=== PATIENT | female | born 1935 | race Caucasian/White ===

== ENCOUNTER → 2017-09-08 07:27 | Day surgery (SDC) | payer MEDICARE ==
[~2017-09-08 07:27] MED LIST: Acetaminophen TAB* 325 MG PO PRN; Buffered Lidocaine 0.9% SYRIN* 5 ML/SYR SYRINGE INTRADERM ONE; Cyclopentolate 1% OPTH.SOL* 2 ML BTL ONE; Ketorolac 0.5% OPHTH (NF) 0.5 % 5 ML BTL ONE; Lidocaine 1% MPF* 2 ML VIAL ONE; Lidocaine 2% EPI 1:200000 MPF* 20 ML VIAL ONE; Midazolam* 1 MG/ML 2 ML VIAL (2 MG) ONE; Neomycin/Polymy/Dex OPTH.SUSP* MAXITROL 0.1% 5 ML ONE; Phenylephrine 2.5% OPTH.SOL* 2 ML BTL ONE; Povidone Iodine 5% OPTH* 30 ML BTL ONE; Proparacaine 0.5% OPHTH.SOL* 15 ML BTL ONE; acetaZOLAMIDE TAB* 250 MG ONE
[2017-09-08 10:05] VITALS: BP 144/71
--- NOTE | 2017-09-08 16:11 | OP ---
DATE OF OPERATION: 09/08/2017 - [facility] DATE OF : 1935. SURGEON: Rakan Rao M.D. PREOPERATIVE DIAGNOSIS: Cataract right eye. POSTOPERATIVE DIAGNOSIS: Cataract right eye. OPERATIVE PROCEDURE: Extracapsular cataract extraction with intraocular lens implant right eye. DESCRIPTION OF PROCEDURE: The patient was brought to the operating room after being given 1/2% Alcaine with epinephrine drops in the preoperative area. The eye was prepped and draped in the usual sterile fashion. Sterile drape and eyelid speculum were placed. Again, topical 1/2% Alcaine with epinephrine was given. A paracentesis incision was made at the 9 o'clock position with the No.75 blade. Clear cornea incision 2.2 x 2.2-mm was created at the 12 o'clock position starting at the anterior limbus using the 2.2-mm keratome. The anterior chamber was irrigated with 0.4 mL of 1% non-preservative intracameral lidocaine and filled with DisCoVisc. A capsulorrhexis was completed using the cystotome and the Utrata forceps. Hydrodissection was performed with balanced salt solution. The lens nucleus was removed with the Phacoemulsification handpiece without incident. Cortex was removed with the irrigation-aspiration handpiece. The capsular bag was re-inflated using DisCoVisc and an [id number] 18.5 implant was inserted with the shooter, oriented to the 95 degree axis. The irrigation-aspiration handpiece was used to remove all residual DisCoVisc. The eye was refilled with balanced salt solution and the wound checked and found to be watertight. Topical Maxitrol drops were given. [id number]/[facility] #: [id number] [facility]
== END | disposition home or self-care (01) ==
LOC: OREAST 07:27
PROVIDERS: ATTEND Specialist
DX: H25.811 Combined forms of age-related cataract, right eye (principal); H11.013 Amyloid pterygium of eye, bilateral; I47.1 Supraventricular tachycardia; I10 Essential (primary) hypertension; K44.9 Diaphragmatic hernia without obstruction or gangrene; Z85.828 Personal history of other malignant neoplasm of skin
CPT/HCPCS: A9270-GY; J2250; V2787

== ENCOUNTER 2017-09-15 10:27 | Day surgery (SDC) | payer MEDICARE ==
[~2017-09-15 10:27] MED LIST changes: -Midazolam* 1 MG/ML 2 ML VIAL (2 MG) ONE
[2017-09-15] MEDS ORDERED: Midazolam* 1 MG/ML 2 ML VIAL (2 MG) ONE ×2 (11:56→12:16)
[2017-09-15 12:57] VITALS: BP 136/83
--- NOTE | 2017-09-15 14:25 | OP ---
DATE OF OPERATION: 09/15/2017. DATE OF : 1935. SURGEON: Rakan Rao M.D. PREOPERATIVE DIAGNOSIS: Cataract left eye. POSTOPERATIVE DIAGNOSIS: Cataract left eye. OPERATIVE PROCEDURE: Extracapsular cataract extraction with intraocular lens implant left eye. PROCEDURE: The patient was brought to the operating room after being given 1/2% Alcaine with epineph rine drops in the preoperative area. The eye was prepped and draped in the usual sterile fashion. S terile drape and eyelid speculum were placed. Again, topical 1/2% Alcaine with epinephrine was given . A paracentesis incision was made at the 3 o'clock position with the No.75 blade. Clear cornea inc ision 2.2 x 2.2-mm was created at the 6 o'clock position starting at the anterior limbus using the 2. 2-mm keratome. The anterior chamber was irrigated with 0.4 mL of 1% non-preservative intracameral li docaine and filled with DisCoVisc. A capsulorrhexis was completed using the cystotome and the Utrata forceps. Hydrodissection was performed with balanced salt solution. The lens nucleus was removed wi th the Phacoemulsification handpiece without incident. Cortex was removed with the irrigation-aspira tion handpiece. The capsular bag was re-inflated using DisCoVisc and an [id number] 17 implant was insert ed with the shooter, oriented to the 108 degree axis. Horizontal reference rashid were made with the patient in a seated position in the preoperative area. The irrigation-aspiration handpiece was used to remove all residual DisCoVisc. The eye was refilled with balanced salt solution and the wound debora cked and found to be watertight. Topical Maxitrol drops were given. [id number]/[facility] #: [id number]
== END 2017-09-15 12:40 | disposition home or self-care (01) ==
LOC: OREAST 10:27
PROVIDERS: ATTEND Specialist
DX: H25.812 Combined forms of age-related cataract, left eye (principal); H11.013 Amyloid pterygium of eye, bilateral; I10 Essential (primary) hypertension; I47.1 Supraventricular tachycardia; I48.91 Unspecified atrial fibrillation
CPT/HCPCS: A9270-GY; J2250; V2787

== ENCOUNTER 2018-03-06 15:29 | Observation (INO) | payer MEDICARE ==
[2018-03-06] MEDS ORDERED: NS 0.9% 1000 ML* 1,000 ML IV ONE (15:41)
--- NOTE | 2018-03-06 15:54 | RAD ---
HISTORY: Neurological changes/code nunez COMPARISONS: None relevant TECHNIQUE: Multiple contiguous axial CT scans were obtained of the head without intravenous contrast. FINDINGS: HEMORRHAGE/INFARCT: There is no hemorrhage or acute infarct. MASSES/SHIFT: There is no mass or shift. EXTRA-AXIAL SPACES: There are no extra-axial fluid collections. SULCI AND VENTRICLES: The sulci and ventricles are normal in size and position for the patient's stated age. CEREBRUM: There is hypoattenuation of the periventricular and subcortical white matter. BRAINSTEM: There are no focal parenchymal abnormalities. CEREBELLUM: There are no focal parenchymal abnormalities. VESSELS: The vessels are grossly normal. PARANASAL SINUSES: The paranasal sinuses are clear. ORBITS: The orbits are unremarkable. BONES AND SOFT TISSUE: No bone or soft tissue abnormalities are noted. OTHER: None IMPRESSION: NO ACUTE INTRACRANIAL PATHOLOGY. PRELIMINARY FINDINGS WERE DISCUSSED WITH DR. RIVERA IN THE EMERGENCY DEPARTMENT AT APPROXIMATELY 3:47 PM ON MARCH 06 2018.
--- NOTE | 2018-03-06 16:00 | ED ---
Neurological HPI - HPI Summary HPI Summary: This is scribe Kunal Bah documenting for attending Dr. Daniel BRENNER. Pt is an 82 y/o F who presents to ED c/o memory and eyesight problems earlier today. 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 Pt is unsure if the vision problem was in one eye or both eyes, and she does not describe a "curtain" or darkening of any portion of her vision. 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 Pt states that those symptoms have now resolved since she is able to now remember the names she had not been able to recall earlier and was able to sew. 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 Not on any blood thinners. Denies PMHx of strokes. I, Dr. Sanchez, personally performed the services described in this documentation as scribed in my presence and it is both accurate and complete. Home Medications Medication Instructions Recorded Confirmed Type Aspirin [Simone Aspirin EC Low Dose 81 mg PO DAILY 03/06/18 03/06/18 History 81 MG] Losartan Potassium 25 mg PO DAILY 03/06/18 03/06/18 History Metoprolol Succinate 50 mg PO DAILY 03/06/18 03/06/18 History Multivit-Min/Iron/Folic/Lutein 1 each PO DAILY 03/06/18 03/06/18 History [Centrum Silver Women Tablet] - History of Current Complaint Chief Complaint: EDNeurologicalDeficit Stated Complaint: POSSIBLE STROKE LIKE SYMPTOMS Time Seen by Provider: 03/06/18 15:34 Hx Obtained From: Patient, Family/Survey Technician - and children present Onset/Duration: Sudden Onset, Started hours ago, Resolved Timing: Constant Onset Severity: Moderate Current Severity: None Neurological Deficit Location: Facial - blurred vision, memory problems Pain Intensity: 0 Pain Scale Used: 0-10 Numeric Character: Visual Changes, Other: - memory problems Aggravating: Nothing Alleviating: Nothing Associated Signs and Symptoms: Positive: Visual Changes, Memory Loss. Negative : Headache, Weakness, Impaired Speech, Numbness TPA Considered: No - deficit resolved - Allergy/Home Medications Allergies/Adverse Reactions: Allergies Allergy/AdvReac Type Severity Reaction Status Date / Time Penicillins Allergy Mild Rash Verified 09/15/17 10:48 Home Medications: Home Medications Aspirin [Simone Aspirin EC Low Dose 81 MG] 81 mg PO DAILY 03/06/18 [History Confirmed 03/06/18] Losartan Potassium 25 mg PO DAILY 03/06/18 [History Confirmed 03/06/18] Metoprolol Succinate 50 mg PO DAILY 03/06/18 [History Confirmed 03/06/18] Multivit-Min/Iron/Folic/Lutein [Centrum Silver Women Tablet] 1 each PO DAILY [History Confirmed 03/06/18] PMH/Surg Hx/FS Hx/Imm Hx Previously Healthy: No Endocrine/Hematology History: Denies: Hx Diabetes Cardiovascular History: Reports: Hx Atrial Fibrillation, Hx Hypercholesterolemia Denies: Hx Coronary Artery Disease, Hx Hypertension, Hx Myocardial Infarction , Hx Pacemaker/ICD, Hx Valvular Heart Disease Respiratory History: Denies: Hx Asthma, Hx Chronic Obstructive Pulmonary Disease (COPD) GI History: Reports: Hx Hiatal Hernia History: Denies: Hx Renal Disease Musculoskeletal History: Reports: Hx Arthritis, Hx Osteoporosis Denies: Hx Rheumatoid Arthritis Sensory History: Reports: Hx Cataracts - both, Hx Contacts or Glasses - glasses , Hx Hearing Aid Opthamlomology History: Reports: Hx Cataracts - both, Hx Contacts or Glasses - glasses Psychiatric History: Denies: Hx Panic Disorder - Surgical History Surgery Procedure, Year, and Place: VEIN LIGATION - STRIPPING - VARICOSE VEINS. D & C. PIECE OF SKIN REMOVED FROM CHEEK, PRE CANCEROUS Hx Anesthesia Reactions: No Infectious Disease History: No Infectious Disease History: Denies: Traveled Outside the [place] in Last 30 Days - Family History Known Family History: Positive: Other - CVA - Social History Lives: With Family Alcohol Use: Daily Alcohol Amount: 2 GLASSES OF WINE DAILY Substance Use Type: Reports: None Smoking Status (MU): Never Smoked Tobacco Review of Systems Constitutional: Negative Positive: Blurred Vision Cardiovascular: Negative Respiratory: Negative Gastrointestinal: Negative Skin: Negative Neurological: Other - Memory loss, NEGATIVE: facial drooping Negative: Headache, Weakness, Slurred Speech Psychological: Normal All Other Systems Reviewed And Are Negative: Yes Physical Exam - Summary Physical Exam Summary: Appearance: Well-appearing, no pain distress, well-nourished, hypertensive Skin: Warm, color reflects adequate perfusion, dry Head: Normal Head/Face inspection, atraumatic Eyes: Conjunctiva clear, PERRL, EOMI, fundi discs sharp and flat, visual mota normal by confrontation ENT: Normal inspection Neck: Supple, no nodes, no JVD Respiratory: Lungs clear, normal breath sounds, no respiratory distress Cardio: RRR, No murmur, pulses normal, brisk capillary refill Abdomen: Soft, nontender Bowel sounds: Present Musculoskeletal: Strength Intact/ROM intact, no calf tenderness, no edema. Psychological: Normal Neuro Exam: A&O x3, CN II-XII intact, motor function 5/5, sensation intact, cerebellar normal Triage Information Reviewed: Yes Vital Signs On Initial Exam: Initial Vitals Temp Pulse Resp BP Pulse Ox 97.4 F 73 16 160/99 96 03/06/18 15:36 03/06/18 15:36 03/06/18 15:36 03/06/18 15:36 03/06/18 15:36 Vital Signs Reviewed: Yes Diagnostics - Vital Signs Vital Signs Temp Pulse Resp BP Pulse Ox 03/06/18 15:36 97.4 F 73 16 160/99 96 - Laboratory Result Diagrams: 03/06/18 15:58 03/07/18 06:07 Lab Statement: Any lab studies that have been ordered have been reviewed, and results considered in the medical decision making process. - Radiology CXR Radiology Interpretation Completed By: Radiologist - Impression: No active cardiopulmonary disease. ED Physician reviewed this report. - CT CTA Head/Neck CT Interpretation Completed By: Radiologist - IMPRESSION: 1. FINDINGS CONSISTENT WITH FIBROMUSCULAR DYSPLASIA. 2. NO INTERNAL CAROTID ARTERY STENOSIS BY NASCET CRITERIA. 3. NO ANEURYSM, VASCULAR MALFORMATION, OCCLUSION, OR STENOSIS OF THE VISUALIZED INTRACRANIAL CIRCULATION. ED Physician reviewed this report. - EKG 15:51 Cardiac Rate: NL EKG Rhythm: Sinus Rhythm ST Segment: Non-Specific Ectopy: None EKG Interpretation: Nl AVIVCT, nl QTc, nl axis, no acute changes EKG Comparison: No Significant Change - c/w 12/01/14 no signif change, except no PVC's now NIH Scale - NIH Scale Level of Consciousness: Alert/Keenly Responsive Ask Patient the Month and His/Her Age: Both Correct Ask Pt to Open/Close Eyes and Hospice Care Sales Consultant/Release Non-Paretic Hand: Both Correctly Best Gaze (Only Horizontal Eye Movement): Normal Visual Field Testing: No Visual Loss Facial Paresis-Pt to Smile & Close Eyes or Grimace Symmetry: Normal/Symmetrical Motor Function - Right Arm: No Drift-Holds 10 Seconds Motor Function - Left Arm: No Drift-Holds 10 Seconds Motor Function - Right Leg: No Drift-Holds 10 Seconds Motor Function - Left Leg: No Drift-Holds 10 Seconds Limb Ataxia-Must be out of Proportion to Weakness Present: Absent Sensory (Use Pinprick to Test Arms/Legs/Trunk/Face): Normal Best Language (Describe Picture, Name Items): No Aphasia Dysarthria (Read Several Words): Normal Extinction and Inattention: No Abnormality Total Score: 0 Course/Dx - Course Course Of Treatment: Pt is an 82 y/o F who presents to ED c/o memory and eyesight problems earlier today. Wilbur Kinney called at 15:48. Telestroke initiated at 15:[address] Fernando Brito. Telestroke completed at 16:21. NIH 0, no TPA recommended. Vitals at 16:06 was BP 182/91, O2 98, and pulse of 68. CXR showed no active cardiopulmonary disease. CTA Head/Neck showed findings consistent with fibromuscular dysplasia, no internal carotid artery stenosis, and no aneurysm, vascular malformation, or occlusion. Pt admitted to medicine with neuro consult for further evaluation and treatment of TIA. - Differential Dx Differential Diagnoses Neuro: Positive: Cerebrovascular Accident, Metabolic Abnormality, Transient Ischemic Attack - Diagnoses Provider Diagnoses: TIA (transient ischemic attack) During the Visit The Following Alert/Code Occurred: Wilbur Grover Discharge - Sign-Out/Discharge Documenting (check all that apply): Patient Departure - admit - Discharge Plan Condition: Stable Disposition: ADMITTED TO [facility] - Billing Disposition and Condition Condition: STABLE Disposition: Admitted to [facility] - Attestation Statements Document Initiated by Scribe: Yes Documenting Scribe: Martin Bah Provider For Whom Scott is Documenting (Include Credential): Adelia Sanchez MD Scribe Attestation: Martin Carias scribed for Adelia Sanchez MD on 03/08/18 at 2326. Scribe Documentation Reviewed: Yes Provider Attestation: The documentation as recorded by the scribe, Prashati Olvin accurately reflects the service I personally performed and the decisions made by me, Adelia Sanchez MD
[2018-03-06 16:10] LABS: ABS Basophils 0 10^3/ul (0-0.2); ABS Eosinophils 0.1 10^3/ul (0-0.6); ABS Lymphocytes 1.6 10^3/ul (1.0-4.8); ABS Monocytes 0.5 10^3/ul (0-0.8); ABS Neutrophils 3.1 10^3/ul (1.5-7.7); ABS Nucleated RBC 0 10^3/ul; Eosinophil % 1.9 % (0-6); Hematocrit 39 % (35-47); Hemoglobin 13.4 g/dl (12.0-16.0); Lymphocyte % 30.3 % (25-47); Mean Corpuscular HGB Conc 34 g/dl (31-36); Mean Corpuscular Hemoglobin 31 pg (27-31); Mean Corpuscular Volume 91 fL (80-97); Mean Platelet Volume 8.7 um3 (7.4-10.4); Nucleated Red Blood Cells % 0; Platelet Count 219 10^3/ul (150-450); Red Blood Count 4.25 10^6/ul (4.00-5.40); Red Cell Distribution Width 14 % (10.5-15); White Blood Count 5.2 10^3/ul (3.5-10.8)
[2018-03-06 16:18] LABS: INR 0.91 (0.77-1.02)
[2018-03-06 16:27] LABS: EGFR Non-African American 70.4 (>60)
[2018-03-06] MEDS ORDERED: Iohexol 350* (CONTRAST) 500 ML MDV IV ONE (16:30)
--- NOTE | 2018-03-06 16:44 | RAD ---
HISTORY: Neurological Changes/Code Kinney COMPARISONS: December 01, 2014 VIEWS: 1: frontal portable view of the chest at 4:30 PM FINDINGS: LINES AND TUBES: None. CARDIOMEDIASTINAL SILHOUETTE: The cardiomediastinal silhouette is stable. PLEURA: The costophrenic angles are sharp. No pleural abnormalities are noted. LUNG PARENCHYMA: The lungs are clear. ABDOMEN: The upper abdomen is clear. There is no subphrenic gas. BONES AND SOFT TISSUES: No bone or soft tissue abnormalities are noted. IMPRESSION: NO ACTIVE CARDIOPULMONARY DISEASE.
--- NOTE | 2018-03-06 17:04 | RAD ---
HISTORY: vision loss and memory, naming probs, resolved COMPARISONS: Head CT dated March 06, 2018 TECHNIQUE: Multiple contiguous axial CT scans were obtained of the head and neck after the administration of nonionic intravenous contrast timed to the systemic arterial phase of contrast enhancement. Coronal and sagittal multiplanar reformations are submitted for review. Multiple 3-D maximum intensity projection reconstructions are also submitted for review. FINDINGS: CTA NECK: AORTIC ARCH: The aortic arch is not completely visualized within the [id number] the current examination. There is no proximal stenosis of the cephalic great vessels. RIGHT VERTEBRAL ARTERY: The right vertebral artery is patent along its course, without stenosis. LEFT VERTEBRAL ARTERY: The left vertebral artery is patent along its course, without stenosis. DOMINANCE: The vertebral arteries are codominant. RIGHT COMMON CAROTID ARTERY: The right common carotid artery is patent. The right carotid bifurcation occurs at C3-C4 RIGHT INTERNAL CAROTID ARTERY: The right internal carotid artery is tortuous. There is alternating dilatation and narrowing consistent with fibromuscular dysplasia. There is no right internal carotid artery stenosis by NASCET criteria. RIGHT EXTERNAL CAROTID ARTERY: The right external carotid artery is unremarkable. LEFT COMMON CAROTID ARTERY: The left common carotid artery is patent. The left carotid bifurcation occurs at C3-C4 LEFT INTERNAL CAROTID ARTERY: The left internal carotid artery is tortuous. There is alternating dilatation and narrowing consistent with fibromuscular dysplasia. There is no left internal carotid artery stenosis by NASCET criteria. LEFT EXTERNAL CAROTID ARTERY: The left external carotid artery is unremarkable. VENOUS CIRCULATION: The venous system is unremarkable. SALIVARY GLANDS: The parotid glands, submandibular glands, sublingual glands are normal. NASAL CAVITY/NASOPHARYNX: The nasal cavity and nasopharynx are normal. ORAL CAVITY/OROPHARYNX: The oral cavity is obscured by streak artifact from dental amalgam. The visualized oral cavity and oropharynx are unremarkable. LARYNGEAL APPARATUS/HYPOPHARYNX: The laryngeal apparatus and hypopharynx are normal. UPPER AIRWAY/UPPER ESOPHAGUS: The visualized upper airway and esophagus are normal. LUNG APICES: The lung apices are clear. THYROID GLAND: Small thyroid nodules are noted. LYMPH NODES: There is no lymphadenopathy by size criteria. BONES AND SOFT TISSUES: Degenerative changes are noted. CTA HEAD: INTRACRANIAL CIRCULATION: There is no aneurysm, vascular malformation, occlusion, or stenosis of the visualized intracranial circulation. The anterior communicating artery complex is clear. Bilateral posterior communicating arteries are identified. VENOUS CIRCULATION: The venous system is unremarkable. PERFUSION: There is no obvious parenchymal perfusion deficit. HEMORRHAGE/INFARCT: There is no hemorrhage or acute infarct. MASSES/SHIFT: There is no mass or shift. EXTRA-AXIAL SPACES: There are no extra-axial fluid collections. SULCI AND VENTRICLES: The sulci and ventricles are normal in size and position for the patient's stated age. CEREBRUM: There is hypoattenuation of the periventricular and subcortical white matter. BRAINSTEM: There are no focal parenchymal abnormalities. CEREBELLUM: There are no focal parenchymal abnormalities. PARANASAL SINUSES: The paranasal sinuses are clear. ORBITS: The orbits are unremarkable. BONES AND SOFT TISSUE: No bone or soft tissue abnormalities are noted. OTHER: There is no abnormal enhancement. IMPRESSION: 1. FINDINGS CONSISTENT WITH FIBROMUSCULAR DYSPLASIA. 2. NO INTERNAL CAROTID ARTERY STENOSIS BY NASCET CRITERIA. 3. NO ANEURYSM, VASCULAR MALFORMATION, OCCLUSION, OR STENOSIS OF THE VISUALIZED INTRACRANIAL CIRCULATION. CPT II Codes: 3100F
[2018-03-06] MEDS ORDERED: Acetaminophen TAB* 325 MG PO PRN (17:32)
[2018-03-06] MEDS ORDERED: Ondansetron INJ* 2 MG/ML VIAL IV PRN (17:32)
[2018-03-06] MEDS ORDERED: hydrALAZINE IV* 20 MG/ML VIAL IV SLOW PU PRN (17:44)
--- NOTE | 2018-03-06 22:33 | HP ---
CC: Dr. Natalya Ordoñez; Dr. Salinas * HISTORY AND PHYSICAL: DATE OF ADMISSION: 03/06/18 PRIMARY CARE PROVIDER: Dr. Natalya Ordoñez. ATTENDING PHYSICIAN WHILE IN THE HOSPITAL: Dr. Jayjay Castro * (report dictated by Deyvi Liang NP). CHIEF COMPLAINT: 1. Difficulty with vision. 2. Confusion. HISTORY OF PRESENT ILLNESS: Mrs. Howard is an 82-year-old female patient. She has a history of cataracts, AFib, Lyme disease, and a history of hypertension. She is coming in today. 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 She was opening the store this morning and she was going to sit down to do some sewing and she was having a difficult time threading the needle. She said she has been sewing for several years and she took 30 plus tries to get the needle, which she says is not normal for her and she says that she was having a hard time seeing the end of the needle where the thread went through. She was finally able to get it and she continued about doing her sewing and then she noticed what she was sewing, she was having trouble remembering what stitches that she was doing and then, she had trouble remembering her kids' names, which was very concerning to her. She closed the store at 2:00. She denied any facial drooping, weakness to one side. No blurry or double vision, although she does state that about a month ago, she had blurry vision in her right eye when she was reading, the letters on the right side of the page were blurry. She did state she had blurry vision today trying to thread the needle, but she was not sure if it was in one eye or the other. She said her vision got better , but the confusion was concerning, but while she was driving home, things were coming back to her, she was remembering her stitches, she was knowing her children's names. She got home and she told her children what happened and her , the children's father, and they urged her to go to the ER. There was no reports of slurred speech, no reports of difficulty finding words, no reports of weakness to one side, unsteady gait, or loss of consciousness. She says she has been feeling well until today. There has not been any fevers, chills, vomiting, or diarrhea. She denied having any chest pain or palpitations of late. She says she has been taking her medications. There has been no change in medications, but she came into the ED, a code enrique was called. There was concern for possible stroke versus TIA and we were asked to evaluate for admission. PAST MEDICAL HISTORY: Significant for: 1. Cataracts. 2. AFib. 3. Lyme disease. 4. Hypertension. PAST SURGICAL HISTORY: 1. She has had cataract extraction. 2. She has had varicose vein stripping. HOME MEDICATIONS: Home medications according to the list that she provided us include: 1. Multivitamin 1 tablet daily. 2. Metoprolol succinate 50 mg daily. 3. Aspirin 81 mg daily. 4. Losartan 25 mg daily. ALLERGIES TO MEDICATIONS: Include PENICILLIN. FAMILY HISTORY: Her mother had a history of stroke. Her father had a history of melanoma. SOCIAL HISTORY: She does not smoke. She does drink a glass of wine in the evening time typically. Surrogate decision maker is her of her children. REVIEW OF SYSTEMS: There is no documented fever. She denies having any significant weight change. There was reports of double vision. No ear discharge. No rhinorrhea. No sore throat. No thyroid enlargement. Denies having any chest pain. There is no orthopnea. No nocturnal dyspnea. There is no abdominal pain. No nausea. No vomiting. No dysuria, no frequency. No seizure, no loss of consciousness. No pruritus and no skin ulcerations. Review of 14 systems completed, all others were negative. PHYSICAL EXAMINATION GENERAL: At this time, Mrs. Howard is an 82-year-old female patient; she is sitting in the ED stretcher. She does not appear to be in any acute distress. VITAL SIGNS: Blood pressure 182/99, pulse 66, respirations were 18, O2 sat 98% , temperature 97.4. HEENT: Head atraumatic and normocephalic. Eyes: EOMs were intact. Sclerae were anicteric and not pale. Throat: Oral mucosa appears to be moist. No oropharyngeal erythema. NECK: Supple. LUNGS: Clear to auscultation bilaterally. No wheezes, rales, or rhonchi. HEART: Sounds S1, S2. Regular rate and rhythm. No murmurs, rubs, or gallops. ABDOMEN: Soft, flat, nontender. Bowel sounds were present. EXTREMITIES: Pulses were 2+ throughout. She is able to move all 4 extremities with 5/5 strength. No peripheral edema. NEUROLOGICAL: She is awake, alert, and oriented x3. Tongue midline. Bench Lathe Operator were equal. Cranial nerves II through XII were intact. Gstbni-yw-krwy intact bilaterally. Zmmq-uk-hvhy was intact bilaterally. Speech was clear. She had no gross focal deficits. SKIN: Grossly intact. DIAGNOSTIC STUDIES/LAB DATA: Labs today are revealing a WBC of 5.2, RBC of 4.25, hemoglobin of 13.4, hematocrit of 39, platelet count of 219. The INR was 0.91, the PTT was 34.6. The sodium was 139, potassium was 3.8, chloride of 104 , bicarb 29, BUN 16, creatinine 0.78, glucose 147, lactic 1.4, calcium 9.5. Total bili 0.6. AST 17, ALT 15, alk phos 55. Troponin 0.00. Albumin of 4.2. She did have multiple imaging in the ED starting out CTA head and neck findings consistent with fibromuscular dysplasia, no internal carotid artery stenosis by NASCET criteria. No aneurysm, vascular malformation, occlusion, or stenosis of the visualized intracranial circulation. She did have a chest x-ray obtained today, impression: No active cardiopulmonary disease. There was a brain CT obtained today, which showed no acute intracranial pathology. She did have an EKG obtained today as well, which showed a normal sinus rhythm, rate of 62, she had no ST elevations or T-wave inversions. It was reviewed with previous EKG. Previous EKG did have PACs. Old medical records were reviewed. ASSESSMENT AND PLAN: Mrs. Howard is an 82-year-old female patient coming into the emergency department today with complaints of difficulty with vision and confusion. She presented to the ED and nena nunez was called. She will be admitted under observation status for: 1. Transient ischemic attack. Again, her symptoms are completely resolved at this point. However, I am concerned she has a history of atrial fibrillation. Certainly theoretically that she could have been going in and out atrial fibrillation that may have thrown clots to her brain. My plan at this point, I did touch base with Dr. Salinas. He does not want to start blood thinners at this point until after MRI to make sure there has not been any large areas of infarct. In the time being, we will place the patient on full-dose aspirin, frequent neuro checks. I have ordered an echo with bubble study. We will get an MRI of the brain. CTA head and neck was already done and negative. Neurology has been consulted. She will be placed on telemetry and we will continue to follow her closely. I will check lipid panel and A1c. 2. Atrial fibrillation. Again, she is in a sinus rhythm currently. We will continue to monitor. She will be placed on telemetry. We will need to consider blood thinning in the form of either Eliquis, Xarelto, Pradaxa, or Coumadin. I will let the primary to determine this tomorrow. For tonight, we are holding until the MRI is obtained tomorrow. 3. Hypertension in the setting of possible transient ischemic attack. I will allow for permissive hypertension. I have ordered p.r.n. hydralazine for blood pressures greater than 190 or diastolics greater than 110 and I have held her metoprolol and her Cozaar. 4. DVT prophylaxis. Again, I am not going to start DVT prophylaxis just yet. I will place her on SCDs only because again I want to minimize the risk of any hemorrhagic conversion if there was any areas of infarct on the MRI of brain. 5. Fluids, electrolytes, and nutrition. She can have a heart-healthy diet. 6. Code status. Full code. TIME SPENT: On the admission was 60 minutes, greater than half time spent face- to- face with the patient obtaining my history and physical, other half time was spent going over the plan of care with the patient and implementing the plan of care. I did discuss the plan of care with my attending, Dr. Castro, he is in agreement. DEYVI LIANG, YAMEL [id number]/[facility] #: [id number] FADY
[2018-03-06] MEDS: Aspirin TAB* 325 MG PO SCH (22:53)
[2018-03-07 03:55] LABS: Urine Appearance Clear; Urine Blood Negative (Negative); Urine Color Straw; Urine Ketones Negative (Negative); Urine Protein Negative (Negative); Urine Red Blood Cell Absent (Absent); Urine Specific Gravity 1.018 (1.010-1.030); Urine Urobilinogen Negative (Negative); Urine White Blood Cell Trace(0-5/hpf) (Absent)
[2018-03-07 06:21] LABS: INR 0.91 (0.77-1.02)
[2018-03-07 06:33] LABS: EGFR Non-African American 79.7 (>60)
--- NOTE | 2018-03-07 08:55 | RAD ---
HISTORY: tia COMPARISONS: Head CT dated March 06, 2018 TECHNIQUE: The following sequences were obtained of the head: Sagittal T1-weighted images, axial T2-weighted images, axial FLAIR images, axial susceptibility weighted images, axial T1-weighted images. Additionally, axial diffusion-weighted images were obtained with calculated apparent diffusion coefficients. FINDINGS: HEMORRHAGE/INFARCT: There is no hemorrhage or acute infarct. MASSES/SHIFT: There is no mass or shift. EXTRA-AXIAL SPACES/MENINGES: There are no extra-axial fluid collections. SULCI AND VENTRICLES: The sulci and ventricles are normal in size and position for the patient's stated age. CEREBRUM: There are multiple scattered small foci of elevated T2/FLAIR signal within the periventricular and subcortical white matter. BRAINSTEM: There are no focal parenchymal abnormalities. CEREBELLUM: There are no focal parenchymal abnormalities. The cerebellar tonsils are normal in size and position. SELLA: The sella is normal. PINEAL: The pineal region is clear. CP ANGLE/TEMPORAL BONES: The labyrinthine structures are grossly normal. VESSELS: Normal flow-voids are noted within the visualized vertebral vasculature. DIFFUSION ABNORMALITIES: There are no diffusion abnormalities. PARANASAL SINUSES/MASTOIDS: The paranasal sinuses are clear. ORBITS: The orbits are unremarkable. BONES AND SOFT TISSUE: No bone or soft tissue abnormalities are noted. OTHER: None IMPRESSION: 1. THERE ARE MULTIPLE FOCI OF ELEVATED T2/FLAIR SIGNAL WITHIN THE PERIVENTRICULAR AND SUBCORTICAL WHITE MATTER. WHILE THESE FINDINGS ARE NONSPECIFIC, THEY CAN BE SEEN IN ASSOCIATION WITH MIGRAINE HEADACHE, THE SEQUELA OF PREVIOUS INFECTION OR INFLAMMATION, AND CHRONIC SMALL VESSEL ISCHEMIA. DEMYELINATING DISEASE IS ALSO WITHIN THE DIFFERENTIAL, BUT IS CONSIDERED LESS LIKELY IN THE ABSENCE OF THE APPROPRIATE CLINICAL PRESENTATION. 2. NO RESTRICTED DIFFUSION TO SUGGEST ACUTE INFARCT.
[2018-03-07] MEDS: Aspirin TAB* 325 MG PO SCH (09:14)
--- NOTE | 2018-03-07 11:27 | ECHO ---
Patient: ELMER MEJÍA [facility] Rec#: [id number] : 1935 Date: 03/07/2018 Age: 82y Height: 166 cm / 65.4 in Weight: 64 kg / 141.1 lbs Sex: F BSA: 1.71 Room#: [facility] Admit Date#: 03/06/2018 Type: Inpatient Referring: Deyvi Liang NP Reading: Nick Cherry MD Test Case Developer: Heidi Aragon RDCS,RDMS CC: Natalya Ordoñez MD Transthoracic Echocardiogram Indication: TIA BP: 155/76 HR: 60 Rhythm: NSR Findings History: AFIB, HTN, LYME Technical Comments: The study quality is good. The study is technically limited due to poor parasternal windows. Left Ventricle: The left ventricular chamber size is normal. Mild concentric left ventricular hypertrophy is observed. Global left ventricular wall motion and contractility are within normal limits. There is normal left ventricular systolic function. The estimated ejection fraction is 55-60%. Abnormal left ventricular diastolic filling is observed, consistent with impaired relaxation. Left Atrium: The left atrium is mildly dilated. Right Ventricle: The right ventricular chamber size and systolic function are within normal limits. Right Atrium: The right atrium is mildly dilated. The bubble study is negative. Aortic Valve: The aortic valve is trileaflet. The aortic valve leaflets are mildly thickened. There is a trace of aortic regurgitation. There is no evidence of aortic stenosis. Mitral Valve: There is posterior mitral annular calcification. The mitral valve leaflets are mildly thickened. There is a trace of mitral regurgitation. There is no evidence of mitral stenosis. Tricuspid Valve: The tricuspid valve leaflets are normal. There is trace tricuspid regurgitation. No pulmonary hypertension is noted. Pulmonic Valve: The pulmonic valve appears normal. There is a trace pulmonic regurgitation. Pericardium: There is no significant pericardial effusion. Aorta: The aortic root appears normal. The aortic arch is not well visualized. Pulmonary Artery: The main pulmonary artery is not well visualized. Venous: The inferior vena cava appears normal in size. There is a greater than 50% respiratory change in the inferior vena cava dimension. Contrast: Intravenous agitated saline contrast was used to assess intracardiac shunting. Images 20 and 21 Summary: There was not any prior study for comparison. Conclusions Global left ventricular wall motion and contractility are within normal limits. There is normal left ventricular systolic function. The estimated ejection fraction is 55-60%. The right ventricular chamber size and systolic function are within normal limits. The bubble study is negative. There is a trace of aortic regurgitation. There is posterior mitral annular calcification. There is a trace of mitral regurgitation. There is trace tricuspid regurgitation. No pulmonary hypertension is noted. There is no significant pericardial effusion. Measurements Name Value Normal Range RVIDd (AP) 2D 3.3 cm (0.9 - 2.6) RVDdMajor (2D) 3.1 cm (2.2 - 4.4) RAd ISD 4CH 5.4 cm (3.4 - 4.9) RA (A4C)W 3.9 cm (2.9 - 4.6) IVSd (2D) 1.2 cm (0.6 - 1) LVPWd (2D) 1.1 cm (0.6 - 1) LVIDd (2D) 3.9 cm (3.6 - 5.4) LVIDs (2D) 2 cm - LV FS (2D) 48 % (25 - 45) Aortic Annulus 2.2 cm (1.4 - 2.6) Ao root diameter (2D) 3.3 cm (2.1 - 3.5) Ascending Ao 3.2 cm (2.1 - 3.4) LA dimension (AP) 2D 3.4 cm (2.3 - 3.8) LAd ISD 4CH 5.3 cm (2.9 - 5.3) LA ISD 4CH W 4.4 cm (2.5 - 4.5) Name Value Normal Range LA ESV BP (A/L) index 38 ml/m2 - Name Value Normal Range MV E-wave Vmax 0.6 m/sec - MV deceleration time 209 msec - MV A-wave Vmax 0.8 m/sec - MV E:A ratio 0.8 ratio - LV septal e' Vmax 0.06 m/sec - LV lateral e' Vmax 0.04 m/sec - LV E:e' septal ratio 10 ratio - LV E:e' lateral ratio 15 ratio - Name Value Normal Range AV Vmax 1.3 m/sec - AV VTI 26 cm - AV peak gradient 7 mmHg - AV mean gradient 3 mmHg - LVOT Vmax 1 m/sec - LVOT VTI 21 cm - LVOT peak gradient 4 mmHg - LVOT mean gradient 2 mmHg - Name Value Normal Range TR Vmax 2.3 m/sec - TR peak gradient 21 mmHg - RAP 3 mmHg - RVSP 24 mmHg - IVC diameter 1.5 cm - Name Value Normal Range PV Vmax 0.8 m/sec - PV peak gradient 2.6 mmHg -
--- NOTE | 2018-03-07 20:37 | CONS ---
CC: Dr. Salinas; Dr. Ordoñez * NEUROLOGY CONSULT NOTE: DATE OF CONSULT: 03/07/18 PROVIDER: Deyvi Liang NP REASON FOR CONSULT: The patient had a transient episode of word-finding difficulty. HISTORY OF PRESENT ILLNESS: Ms. Howard is an 82-year-old female, who is right - handed, with history of cataracts; atrial fibrillation, on aspirin; hypertension, who had an episode on 03/06/18 where she had trouble seeing off the right eye and had a 1-hour transient symptom of word-finding difficulty. The patient immediately rushed home. She drove herself home. She attended to family and informed them about her deficits and then she was immediately rushed to the emergency department. The patient had complete resolution of her symptoms upon arrival to the ED. She was evaluated by Teleneurology at the [facility]. She denied any headaches, any recurrence of visual disturbance, slurred speech, or swallowing difficulty. She had a brain CT of the head that showed no acute intracranial abnormality. She had a head CTA as well as a CTA of the neck that showed fibromuscular dysplasia with no evidence of large vessel occlusion. She had a transthoracic echo that showed an EF of 55 % with no interatrial shunting. She had a brain MRI that showed diffuse cortical and subcortical white matter lesion consistent with small vessel disease and ischemia. There was no evidence of acute stroke. The patient was admitted to the hospital for further evaluation for TIA. She was continued on aspirin, but given a higher dose aspirin at 325. PAST MEDICAL HISTORY: Cataracts, atrial fibrillation, Lyme disease, hypertension. PAST SURGICAL HISTORY: Cataract extraction, varicose vein stripping. HOME MEDICATIONS: 1. Metoprolol succinate 50 mg daily. 2. Aspirin 81 mg daily. 3. Losartan 25 mg daily. 4. Multivitamin 1 tablet daily. ALLERGIES TO MEDICATIONS: Include PENICILLIN. FAMILY HISTORY: Mother had history of stroke. Father had history of melanoma. Her sister had suffered a large stroke as well. SOCIAL HISTORY: She does not smoke. She drinks a glass of wine in the evening. 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 REVIEW OF SYSTEMS: A 14-point review of systems was obtained and otherwise negative except for what was mentioned in the HPI. PHYSICAL EXAM: Vitals: Temperature 97.9, pulse rate of 55, respiratory rate of 16, oxygen saturation 96% on room air, blood pressure 133/61. General: Well - nourished, well-developed female, in no acute distress. She appears stated age. Head is normocephalic without obvious abnormality. Eyes: Conjunctivae/ corneas are clear. Neck is supple and symmetrical with no carotid bruit. Lungs are clear to auscultation bilaterally. Cardiovascular: Irregular rhythm with normal S1, S2. Extremities: Normal range of motion with no cyanosis. Skin : No skin lesion or lacerations. Psych: Affect is broad with normal mood. She is easy to establish rapport. Neurological Examination: Mental Status: She is awake, alert, and oriented to person, place, time, and general circumstances. Speech and language including expression, naming, repetition, and comprehensions were assessed and found to be normal. Cranial Nerves: Normal confrontation bilaterally. Pupils are mid range and reactive to light. Sensation is intact on the face. No facial droop. Able to hear throughout the history process. Normal strength against shoulder shrug resistance. Tongue is symmetrical and midline with no atrophy. Motor Exam: No abnormal movements or pronator drift. Normal bulk throughout. 5/5 strength throughout the upper and lower extremities distally and proximally. Reflexes: 2+ in the upper extremities bilaterally with 0 at the ankles bilaterally. She has got flexor plantar response bilaterally. Sensation is intact to light touch and pinprick throughout the upper and lower extremities. Coordination: Normal finger-to- nose and ohru-tn-lbom testing. Gait: Narrow based, normal stance. No ataxia. DIAGNOSTIC STUDIES/LAB DATA: EKG was reviewed and she is in normal sinus rhythm. Other laboratory testing: WBC of 5.2. INR is 0.91, aPTT 34.6. Sodium of 139, potassium of 3.9, chloride 107, creatinine of 0.70. LDL of 125, HDL of 89, cholesterol of 229. ASSESSMENT AND PLAN: Ms. Mariah Howard is an 82-year-old female with a history of atrial fibrillation, dyslipidemia, and hypertension, who presented with what appears to be word-finding difficulty and transient visual loss in the right eye. I suspect the patient has a left internal carotid artery transient ischemic attack, especially in the setting of fibromuscular dysplasia as well as atrial fibrillation, not on anticoagulation therapy. We agree to start anticoagulation therapy with Eliquis 5 mg twice daily - the patient is over 60 kg and she has normal kidney function. She can discontinue aspirin therapy. I also started her on pravastatin 40 mg nightly. She prefers not to start on high -intensity statin to prevent any myalgias. She is not a candidate for IV tPA or mechanical thrombectomy, as she has no symptoms at this point and her NIH Stroke Scale is 0. Primary stroke preventions were discussed with the patient and family at bedside. Her stroke workup has been complete. She does not require PT/OT/BIN WORKER given that she is asymptomatic. No need for DVT prophylaxis since she is going to be on Eliquis at this point. She could be discharged from the neurology standpoint with a followup with Dr. Salinas in 4 weeks. If the patient has recurrence of her symptoms, then adding in aspirin 81 mg would be recommended. TIME SPENT: I spent a total of 75 minutes and greater than 50% of that was spent directly reviewing the medical chart, obtaining history, examining the patient, education and counseling, and discussing the treatment plan and prognosis. [id number]/[facility] #: [id number] FADY
[2018-03-07] MEDS: Apixaban* 5 MG TAB PO SCH (21:09)
--- NOTE | 2018-03-07 23:26 | PN ---
NEUROLOGY PROGRESS REPORT: DATE OF SERVICE: 03/07/18 CHIEF COMPLAINT: Transient word finding difficulty and visual loss in the right eye. CANCEL DICTATION [id number]/[facility] #: [id number] FADY
--- NOTE | 2018-03-08 04:00 | PN ---
PROGRESS NOTE: DATE: 03/07/18 PATIENT OF: Dr. Natalya Ordoñez and Deyvi Liang. HISTORY: This is an 82-year-old woman who the family and Deyvi Garth asked me to see yesterday following a telestroke consult. She has atrial fibrillation in about few months ago and then again a month ago she had decreased vision off to the right side, each time lasting about 20 minutes. She had actually seen an eye doctor, who did not think it was a problem with her vision. Wednesday morning, she was trying to thread a needle and she was having trouble in her vision, seeing for all and then shortly after which she had trouble remembering her children's names, their last names and this was very unusual for her. She can still talk and did not say any nonsense words. She also had some difficulty threading the needles unclear whether this was the coordination problem or just visual symptoms. By the time, she came into the ER , she was better, nena nunez was called and [facility] telestroke was consulted and because she had no deficits at that time she was not considered a candidate for tPA. A CTA was also recommended and obtained. PAST MEDICAL HISTORY: She has a history of atrial fibrillation, Lyme disease, hypertension, cataracts. PAST SURGICAL HISTORY: She had cataract extraction, varicose vein stripping. MEDICATIONS: She has been maintained on, 1. Aspirin 81 mg a day. 2. Losartan 25 mg a day. 3. Metoprolol 50 mg a day. ALLERGIES: She is allergic to PENICILLIN. FAMILY HISTORY: Mother had a history of stroke. Father had melanoma. SOCIAL HISTORY: She does not smoke. She drinks a glass of wine in the evening. REVIEW OF SYSTEMS: Negative in all 14 spheres other than HPI. PHYSICAL EXAMINATION: On exam, blood pressure 182/99, pulse 66, respirations 18 , temperature 97.9. She is alert and oriented with normal speech and comprehension. Cranial nerves II through XII were intact. Fundi were benign. Motor exam revealed normal tone, strength, coordination. Sensation intact to light touch. Reflexes are 2 and equal. Downgoing toes. Chest: Clear. Cardiovascular: Irregular rate and rhythm. Abdomen: Soft with positive bowel sounds. IMAGING: Her CT scan, I reviewed was normal and CTA did not show any large vessel occlusion and did show some fibromuscular dysplasia. ASSESSMENT AND PLAN: I discussed with her and the family at length that she most likely has had stroke or tia today with brief aphasia and what sounds like few prior episodes of field cut that was transient. Given her atrial fibrillation, the concern was that she would be at risk for further problems and she will beginning a MRI scan tomorrow. I have Dr. Diaz will be seeing and discussed this and if the MRI scan did not show a significant acute stroke then should begin anticoagulation for treatment of recurrent TIA. Thank you for sharing this case. [id number]/[facility] #: [id number] FADY
[2018-03-08] MEDS: Apixaban* 5 MG TAB PO SCH (08:19)
[2018-03-08 14:08] VITALS: BP 132/65
--- NOTE | 2018-03-08 15:28 | DS ---
CC: Dr. Salinas * DISCHARGE SUMMARY: DATE OF ADMISSION: 03/06/18 DATE OF DISCHARGE: 03/08/18 DISCHARGE DIAGNOSES: 1. Transient ischemic attack. 2. History of cerebrovascular accident. 3. Paroxysmal atrial fibrillation. 4. History of hypertension. 5. Osteoarthritis. 6. Fibromuscular dysplasia of the carotid arteries. HISTORY: Mariah Howard is an 82-year-old woman admitted with visual changes and cognitive changes, which resolved by the time she came to the emergency room. Please see the dictated admission note for the details of the present illness, past medical history, family history, social and personal history, review of systems, and physical examination. LABORATORY DATA: CBC 03/06/18, WBC 5.2, H and H 13.4/39, MCV 91, PLT 219k, ESR 13, INR, PTT normal. Chemistries on 03/06/18, sodium 139, potassium 3.8, chloride 104, CO2 29, BUN and creatinine 16/0.78, glucose 147. Rest of the comprehensive metabolic panel was within normal limits with BMP on 03/07/18, essentially unchanged. Lipid panel on 03/06/18, cholesterol 229, HDL 89.8, LDL 125, triglyceride 72, this was nonfasting. On 03/07/18, fasting cholesterol 216 , HDL 83.9, LDL 120, triglycerides 59, TSH was normal at 3.19. Urinalysis: Straw clear, specific gravity 1.018, pH 7, dip stick positive for trace leukocyte esterase, trace wbcs. Urine culture on 03/07/18, showed mixed bethany, possible contamination. IMAGING: On 03/06/18, brain CT showed no acute intracranial pathology. There was hypoattenuation of the periventricular and subcortical white matter. Chest x-ray on 03/06/18, showed no active cardiopulmonary disease. Head CTA on , showed changes suggestive of fibromuscular dysplasia of the carotid arteries. There was no significant stenosis noted. Brain MRI 03/07/18, showed multiple foci of elevated T2/flare signal within the periventricular and subcortical white matter. No restrictive diffusion to suggest an acute infarct. EKG 03/06/18, showed sinus rhythm, normal EKG. Transthoracic echocardiogram , showed trace aortic regurgitation, posterior mitral annular calcification , trace mitral regurgitation, trace tricuspid regurgitation, no EF. The telemetry monitoring showed normal sinus rhythm, sinus bradycardia, PVCs, 1 episode of paroxysmal atrial fibrillation lasting 23 seconds with a rate about 132. This was on the evening of 03/07/18. Neurology consultation 03/07/18, Dr. Diaz, felt that the patient had history of atrial fibrillation, dyslipidemia, hypertension, and history consistent with a transient ischemic attack in the setting of fibromuscular dysplasia as well as atrial fibrillation. He recommended Eliquis 5 mg twice daily, discontinuing aspirin, beginning pravastatin. He recommended Neurology followup in 4 weeks. He felt that if she had recurrent symptoms, aspirin 81 mg could be recommended. Neurology brief visit with Dr. Salinas, agreed with this treatment. HOSPITAL COURSE: The patient was admitted. She was placed on telemetry. Her antihypertensives were not ordered, but she told me that she took some on her own. Telemetry revealed normal sinus rhythm, sinus bradycardia, occasional PVCs with 1 couplet and a 23-episode of nonsustained paroxysmal atrial fibrillation, rate 132. She had no recurrence of her symptoms. She felt fine during her hospitalization. She was started on anticoagulation by the neurologist with [facility]. At the time of discharge, she is feeling well. She is anxious to go home. Her diet is usual, activity is as tolerated. She is to be on Eliquis 5 mg twice a day, metoprolol extended release 50 mg once a day, losartan 25 mg once a day, and pravastatin 10 mg each evening. She is not to take aspirin. Metoprolol dose may need to be increased, She is to follow up with me in 5 to 7 days. [id number]/[facility] #: [id number] MTDD
--- NOTE | 2018-03-08 15:28 | PN ---
NEUROLOGY PROGRESS NOTE: DATE OF SERVICE: 03/08/18 PRIMARY PROVIDER: Dr. Ordoñez REASON FOR NEUROLOGY FOLLOWUP: TIA. CHIEF COMPLAINT: None. SUBJECTIVE: The patient is resting comfortably. She slept well last night. She denied any headaches, visual disturbances, focal weakness, or paresthesias. The patient has tolerated Eliquis 5 mg twice daily without any reported bleeding. REVIEW OF SYSTEMS: Denied chest pain, shortness of breath, or palpitations. Telemetry: The patient had a run of atrial fibrillation overnight. MEDICATIONS: 1. Acetaminophen 650 mg q.4 as needed for fever. 2. Apixaban 5 mg b.i.d. as scheduled. 3. Hydralazine 5 mg IV slow push for elevation of blood pressure. 4. Ondansetron 4 mg IV every 6 hours p.r.n. for nausea. PHYSICAL EXAMINATION: Vital Signs: Temperature of 97.7, pulse 63, respiratory rate 16, saturation 99, blood pressure 138/65. General: Well-nourished, well- developed female in no acute distress. Neck: Supple, symmetrical, no carotid bruit. Lungs: Clear to auscultation bilaterally. Cardiovascular: Regular rate and rhythm. Skin: No skin lesion or laceration. Neurological Examination : Mental status, awake, alert, oriented to person, place, time, and general circumstances. Cranial nerves: Pupils equal, round, and reactive to light, extraocular muscles are intact, no facial droop. Tongue is symmetrical with no atrophy. Motor: 5/5 strength in the upper and lower extremities. Reflexes are 2+ throughout except absent at the ankles bilaterally. Plantar response flexor bilaterally. Sensation is intact to light and symmetrically. Coordination, normal [id number] and rapid alternating movement. Gait: Nonataxic, cautious gait. ASSESSMENT AND PLAN: Mrs. Mariah Howard is an 82-year-old female who had transient ischemic attack involving the left ICA. The patient had a transient word finding difficulty, this has resolved. She also has history of atrial fibrillation and is not on anticoagulation therapy. She had a run of atrial fibrillation overnight, but the patient was asymptomatic. She is tolerating Eliquis [address] Ordoñez and I agreed to start her on low-dose pravastatin 10 mg given her age and given the mechanism of the transient ischemic attack is embolic and is not likely related to small vessel ischemia. She should follow up with Dr. Salinas in 4 weeks. Stroke education was completed with the patient. She does not need rehab as symptoms completely have resolved. No further neurological workup is recommended. TIME SPENT: I spent a total of 50 minutes and greater than 50% was spent directly reviewing the medical chart, examining the patient, and discussing the treatment plan as mentioned above. [id number]/[facility] #: [id number] FADY
== END 2018-03-08 13:18 | disposition home or self-care (01) ==
LOC: ED 15:29 → MEDTELE 18:23
PROVIDERS: ADMIT Student in an Organized Health Care Education/Training Program; ATTEND Internal Medicine Geriatric Medicine
DX: G45.9 Transient cerebral ischemic attack, unspecified (principal); Z86.73 Personal history of transient ischemic attack (TIA), and cerebral infarction without residual deficits; I48.0 Paroxysmal atrial fibrillation; I10 Essential (primary) hypertension; M19.90 Unspecified osteoarthritis, unspecified site; I77.3 Arterial fibromuscular dysplasia; R41.0 Disorientation, unspecified; Z79.82 Long term (current) use of aspirin
CPT/HCPCS: 36415; 70450; 70496; 70498; 70551; 71045; 80048; 80053; 80061; 81003; 81015; 83036; 83605; 84443; 84484; 85025; 85610; 85652; 85730; 86850; 86900; 86901; 87086; 93005; 93306; 96374; 96375; 99284; G0378; Q9967

== ENCOUNTER 2018-03-29 11:00 | Inpatient (IN) | payer MEDICARE ==
--- NOTE | 2018-09-09 12:41 | HP ---
AMENDED REPORT NOW INCLUDES COSIGNER DESIGNATION HISTORY AND PHYSICAL: DATE OF ADMISSION/SURGERY: 09/22/18 DATE OF OFFICE VISIT: 09/09/18 SURGEON: Jocy Victoria MD * (DICTATED BY DARRYL KOWALSKI) PROCEDURE: Left total knee arthroplasty. CHIEF COMPLAINT: Left knee pain. HISTORY OF PRESENT ILLNESS: Ms. Howard is an 82-year-old female with continued complaints of left knee pain. She has failed conservative treatment and elected to proceed with a left total knee arthroplasty. PAST MEDICAL HISTORY: TIA, history of Lyme disease, hypertension, and AFib. PAST SURGICAL HISTORY: Vein ligation. CURRENT MEDICATIONS: 1. Metoprolol 50 mg daily. 2. Eliquis 5 mg twice a day. 3. Protandim 2 daily. 4. Multivitamin. ALLERGIES: To PENICILLIN and PRAVASTATIN SODIUM. FAMILY HISTORY: Melanoma and stroke. SOCIAL HISTORY: She is an 82-year-old female. She lives with her . She does not smoke or use drugs. Uses occasional alcohol. REVIEW OF SYSTEMS: A complete 14-point review of systems was reviewed with the patient. It was positive for a TIA in February. She denies history of DVT, PE, hepatitis, HIV, or anesthesia problems. PHYSICAL EXAMINATION GENERAL: She is well developed, well nourished, in no acute distress. VITAL SIGNS: She stands 65 inches tall, weighs 146 pounds. Her blood pressure is 111/76 and her heart rate is 68. HEENT: Normocephalic, atraumatic. NECK: Supple. No palpable lymph nodes. PULMONARY: The lungs are clear to auscultation bilaterally. CARDIO: Regular rate and rhythm. Strong S1, S2. ABDOMEN: Soft, nontender, nondistended. NEUROLOGICAL: She is alert and oriented x3. MUSCULOSKELETAL: Left lower extremity: The skin is intact. There are no open wounds or abrasions. There is a moderate joint effusion, some tenderness along the medial joint line. Range of motion is 10 to 100 degrees of flexion with patellofemoral crepitus. She has a 2+ dorsalis pedis pulse. She is able to dorsiflex and plantarflex and she has intact sensation. ASSESSMENT AND PLAN: Ms. Howard is an 82-year-old female with end-stage osteoarthritis of the left knee. She has failed conservative treatment and elected to proceed with a left total knee arthroplasty. The surgery is scheduled for 09/22/[address] Victoria discussed the risks and benefits of the surgery at today's visit and all of her questions were answered. She will follow up with Dr. Victoria 2 weeks after the surgery. No TXA will be used on this patient. DARRYL KOWALSKI [id number]/[facility] #: [id number] FADY
[2018-09-21] MEDS ORDERED: Buffered Lidocaine 1% SYRIN* 1 ML/SYRINGE INTRADERM ONE (12:59)
[2018-09-22] MEDS ORDERED: Lactated Ringers 1000 ML Bag* 1,000 ML IV SCH (06:00)
[2018-09-22] MEDS ORDERED: Famotidine IV* 10 MG/ML 2 ML (20 mg) IV ONE (06:00)
[2018-09-22] MEDS ORDERED: Dexamethasone IV* 4 MG/ML 1 ML (4 MG) IV SLOW PU ONE (06:00)
[2018-09-22] MEDS ORDERED: celeCOXIB CAP* 200 MG PO ONE (07:00)
[2018-09-22] MEDS ORDERED: Gabapentin CAP(*) 300 MG PO ONE (07:00)
[2018-09-22] MEDS ORDERED: Gabapentin CAP(*) 300 MG ONE (10:39)
[2018-09-22] MEDS ORDERED: Clindamycin 900 MG/D5W BAG(*) 900 MG/50 ML BAG IVPB ONE (10:39)
[2018-09-22] MEDS ORDERED: celeCOXIB CAP* 100 MG ONE (10:39)
[2018-09-22] MEDS ORDERED: Famotidine IV* 10 MG/ML 2 ML (20 mg) ONE (10:40)
[2018-09-22] MEDS ORDERED: Buffered Lidocaine 1% SYRIN* 1 ML/SYRINGE INTRADERM ONE (10:40)
--- OUTSIDE RECORDS SUMMARY | 2018-09-22 11:13 | XMS REPORT | Continuity of Care Document ---
:1935 External Reference #:[id number] Author Name María Elena Coello Care Team Providers Name Role Phone Natalya Ordoñez MD Primary Care Physician Unavailable Payers Date Identification Numbers Payment Provider Subscriber Effective: 2007 Policy Number: [id number] Medicare [facility] PayID: [id number] [address] [place] [address] Policy Number: [id number] [facility] PayID: [id number] [address] [place] [address] Advance Directives Description No Information Available Problems Date Description Provider Status Onset: 09/28/2014 Dizziness and giddiness Tatyana Carrion M.D. Active Onset: 09/28/2014 Tachycardia Tatyana Carrion M.D. Active Onset: 10/15/2014 Paroxysmal supraventricular Tatyana Carrion M.D. Active tachycardia Onset: 10/15/2014 Premature beats Tatyana Carrion M.D. Active Onset: 01/14/2018 Localized, primary osteoarthritis Jocy Victoria M.D. Active Onset: 04/11/2018 Transient cerebral ischemia Reed Allred M.D. 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 Hand Dominance Right-handed Tobacco Use Start: Unknown Never Smoked Cigarettes Smoking Status Reviewed: 02/22/19 Never Smoked Cigarettes ETOH Use consumes 1-2 glasses of wine per day Tobacco Use Start: Unknown Patient has never smoked Recreational Drug Use Never Used Drugs Exercise Type/Frequency Exercises sporadically Allergies, Adverse Reactions, Alerts Date Description Reaction Status Severity Comments 09/28/2014 Penicillins Active 04/11/2018 Pravastatin Sodium Was sick to stomach/Diarrhea. Active Medications Medication Date Status Form Strength Qnty SIG Indications Ordering Provider Metoprolol 10/15/ Active Tablets ER 50mg 90tabs 1 by mouth R00.0 Tatyana Succinate ER 2014 24HR every day Kadie Carrion Tylenol / Active Capsules 325mg bid Unknown 0000 Losartan / Active Tablets 25mg 1 by mouth Unknown Potassium 0000 every day Eliquis / Active Tablets 5mg Take 1 Unknown 0000 Tablet By Mouth Two Times Daily Protatandim / Active 2 daily... Unknown 0000 Metoprolol 09/28/ Hx Tablets ER 25mg 30tabs 1 by mouth 785.0 Tatyana Succinate ER 2014 - 24HR every day Sheyla 10/15/ Kadie 2014 No Active Luis Felipe Medications 2014 - Bing, 09/28/ Kadie 2014 Coumadin / Hx Tablets 5mg as Unknown 0000 - directed 2014 Zantac 150 / Hx Tablets 150mg 1 by mouth Unknown Maximum 0000 - daily Strength 2014 Multivitamins 00/ Hx Capsules 1 by mouth Unknown 0000 - every day 2014 Cod Liver Oil / Hx 1 po qd Unknown 0000 - 2014 Garlic / Hx 1 po qd Unknown 0000 - 2014 Vitamin C / Hx Chewtabs 500mg 1 by mouth Unknown 0000 - every day 2014 Aspirin Ec / Hx Tablets DR 325mg 1 by mouth Unknown 0000 - every day 2017 Protandim / Hx once daily Unknown 0000 - 2017 Medications Administered in Office Medication Date Status Form Strength Qnty SIG Indications Ordering Provider Depomedrol Administered Injection Jocy 80MG 014 Kadie Victoria Depomedrol Administered Injection Jocy 80MG 014 Kadie Victoria Immunizations Description No Information Available Vital Signs Date Vital Result Comment 09/09/2018 8:26am Height 65.75 inches 5'5.75" Weight 146.00 lb BP Systolic 111 mmHg BP Diastolic 76 mmHg Respiratory Rate 16 /min BMI (Body Mass Index) 23.7 kg/m2 08/26/2018 8:12am Height 65.75 inches 5'5.75" Weight 146.00 lb Heart Rate 68 /min BP Systolic 128 mmHg BP Diastolic 84 mmHg BMI (Body Mass Index) 23.7 kg/m2 04/11/2018 8:33am Height 65.75 inches 5'5.75" Weight 149.00 lb Heart Rate 60 /min BP Systolic 124 mmHg BP Diastolic 74 mmHg Respiratory Rate 16 /min BMI (Body Mass Index) 24.2 kg/m2 01/14/2018 8:50am Height 65.75 inches 5'5.75" Weight 149.00 lb Heart Rate 68 /min BP Systolic 124 mmHg BP Diastolic 84 mmHg Pain Level 5 BMI (Body Mass Index) 24.2 kg/m2 05/24/2015 8:52am Height 65 inches 5'5" Weight 145.00 lb without shoes Heart Rate 64 /min BP Systolic Sitting 108 mmHg right arm reg cuff BP Diastolic Sitting 62 mmHg right arm reg cuff BP Systolic Standing 106 mmHg Ra BP Diastolic Standing 64 mmHg Ra Respiratory Rate 18 /min BMI (Body Mass Index) 24.1 kg/m2 Ejection Fraction 60 10/01/14 10/29/2014 8:49am Height 65 inches 5'5" Weight 144.00 lb Heart Rate 62 /min BP Systolic Sitting 142 mmHg left arm, reg cuff BP Diastolic Sitting 84 mmHg left arm, reg cuff BP Systolic Standing 140 mmHg left arm, reg cuff BP Diastolic Standing 84 mmHg left arm, reg cuff Respiratory Rate 20 /min BMI (Body Mass Index) 24.0 kg/m2 10/15/2014 9:30am Height 65 inches 5'5" Weight 144.00 lb w/o shoes Heart Rate 74 /min BP Systolic Sitting 120 mmHg Ra, reg cuff BP Diastolic Sitting 82 mmHg Ra, reg cuff BP Systolic Standing 132 mmHg Ra BP Diastolic Standing 90 mmHg Ra Respiratory Rate 16 /min BMI (Body Mass Index) 24.0 kg/m2 09/28/2014 3:24pm Height 65 inches 5'5" Weight 145.00 lb Heart Rate 84 /min BP Systolic 156 mmHg Ra reg cuff BP Diastolic 94 mmHg Ra reg cuff BP Systolic Sitting 132 mmHg LA reg cuff BP Diastolic Sitting 90 mmHg LA reg cuff BP Systolic Standing 130 mmHg LA BP Diastolic Standing 90 mmHg LA Respiratory Rate 14 /min BMI (Body Mass Index) 24.1 kg/m2 12/01/2013 9:04am Height 66 inches 5'6" Weight 150.00 lb Heart Rate 72 /min BMI (Body Mass Index) 24.2 kg/m2 11/20/2013 10:40am Height 66 inches 5'6" Weight 150.00 lb Heart Rate 76 /min BMI (Body Mass Index) 24.2 kg/m2 08/28/2013 10:33am Heart Rate 83 /min BP Systolic 147 mmHg BP Diastolic 96 mmHg 07/28/2013 8:50am Height 66 inches 5'6" Weight 150.00 lb Heart Rate 89 /min BP Systolic 148 mmHg BP Diastolic 89 mmHg BMI (Body Mass Index) 24.2 kg/m2 Results Test Date Facility Test Result H/L Range Note CBC Auto Diff 09/08/2018 [facility] White Blood 5.4 10^3/uL N 3.5-10.[address] [place] [address] [phone] Red Blood Count 4.27 10^6/uL N 4.00-5.40 Hemoglobin 13.2 g/dL N 12.0-16.0 Hematocrit 40 % N 35-47 Mean Corpuscular Volume 93 fL N 80-97 Mean Corpuscular Hemoglobin 31 pg N 27-31 Mean Corpuscular HGB Conc 33 g/dL N 31-36 Red Cell Distribution Width 14 % N 10.5-15 Platelet Count 234 10^3/uL N 150-450 Mean Platelet Volume 9.0 fL N 7.4-10.4 Abs Neutrophils 3.2 10^3/uL N 1.5-7.7 Abs Lymphocytes 1.4 10^3/uL N 1.0-4.8 Abs Monocytes 0.7 10^3/uL N 0-0.8 Abs Eosinophils 0.1 10^3/uL N 0-0.6 Abs Basophils 0 10^3/uL N 0-0.2 Abs Nucleated RBC 0 10^3/uL Granulocyte % 59.2 % Lymphocyte % 25.3 % Monocyte % 12.8 % Eosinophil % 2.1 % Basophil % 0.6 % Nucleated Red Blood Cells % 0 Comp Metabolic Panel 09/08/2018 [facility] Sodium 140 mmol/L N 135-[address] [place] [address] [phone] Potassium 4.3 mmol/L N 3.5-5.0 Chloride 104 mmol/L N 101-111 Co2 Carbon Dioxide 31 mmol/L N 22-32 Anion Gap 5 mmol/L N 2-11 Glucose 69 mg/dL Low 70-100 Blood Urea Nitrogen 14 mg/dL N 6-24 Creatinine 0.78 mg/dL N 0.51-0.95 BUN/Creatinine Ratio 17.9 N 8-20 Calcium 9.4 mg/dL N 8.6-10.3 Total Protein 6.3 g/dL Low 6.4-8.9 Albumin 4.0 g/dL N 3.2-5.2 Globulin 2.3 g/dL N 2-4 Albumin/Globulin Ratio 1.7 N 1-3 Total Bilirubin 0.50 mg/dL N 0.2-1.0 Alkaline Phosphatase 51 U/L N 34-104 Alt 15 U/L N 7-52 Ast 18 U/L N 13-39 Egfr Non- 70.4 >60 Egfr 85.1 >60 2 Laboratory test 09/08/2018 [facility] Vitamin D 41.0 ng/mL N 20-[address]) [place] [address] [phone] 1 CC:JULIEN [id number] 2 Because ethnic data is not always readily available, this report includes an eGFR for both -Americans and non- Americans. The National Kidney Disease Education Program (NKDEP) does not endorse the use of the MDRD equation for patients that are not between the ages of 18 and 70, are , have extremes of body size, muscle mass, or nutritional status, or are non- or non-. According to the National Kidney Foundation, irrespective of diagnosis, the stage of the disease is based on the level of kidney function: Stage Description GFR(mL/min/1.73 m(2)) 1 Kidney damage with normal or decreased GFR 90 2 Kidney damage with mild decrease in GFR 60-89 3 Moderate decrease in GFR 30-59 4 Severe decrease in GFR 15-29 5 Kidney failure <15 (or dialysis) 3 CC:JULIEN [id number] Procedures Date Code Description Status 03/07/2018 71306 ECHO Transthorasic Realtime 2D W Doppler & Color Flow Hosp Completed 05/24/2015 99037 EKG Tracing & Interpretation Completed 10/23/2014 27466 Holter Monitoring 24 HR New Completed 10/04/2014 31453 Stress ECHO Interpretation/Report Hospital Completed 10/04/2014 92498 Treadmill Interp/Report Only Completed 10/04/2014 84761 Stress Test Supervsn W/Out I/R Completed 10/01/2014 15766 ECHO Transthoracic, Real-Time 2D With Doppler And Color Completed Flow 09/28/2014 30746 EKG Tracing & Interpretation Completed 12/01/2013 66874 Inject/Drain Joint/Bursa Major W/O US Completed 07/28/2013 11341 Xray Knee 3 Views Completed 07/28/2013 95297 Rad Exam; Knee, Ap&L Completed 07/28/2013 10576 Inject/Drain Joint/Bursa Major W/O US Completed Encounters Type Date Location Provider Dx Diagnosis Office Visit 08/26/2018 Orthopedic Jocy Julien, M25.562 Pain in left knee 8:00a [facility] M25.462 Effusion, left knee M17.12 Unilateral primary osteoarthritis, left knee Office Visit 04/11/2018 8:30a Reinaldo Allred, I10 Essential Neurologic M.DCoco (primary) Services [facility] hypertension I48.91 Unspecified atrial fibrillation E78.5 Hyperlipidemia, unspecified Z86.73 Prsnl hx of TIA (TIA), and cereb infrc w/o resid deficits Office Visit 03/08/2018 Neurohospitalist Cody Blanc5.9 Transient 7:00a Clinic cerebral ischemic attack, unspecified I10 Essential (primary) hypertension I48.91 Unspecified atrial fibrillation E78.5 Hyperlipidemia, unspecified Office Visit 03/07/2018 Neurohospitalist Cody Blanc5.9 Transient 7:00a Clinic cerebral ischemic attack, unspecified I10 Essential (primary) hypertension I48.91 Unspecified atrial fibrillation E78.5 Hyperlipidemia, unspecified Office Visit 03/06/2018 [facility] Lynsey Harrison G45.9 Transient 10:44a Assoc,johnny Liang, N.P. cerebral ischemic Hospitalists attack, unspecified I10 Essential (primary) hypertension I48.91 Unspecified atrial fibrillation Office Visit 01/14/2018 8:30a Orthopedic Services Jocy Victoria, M25.561 Pain in right Of C.M.A. M.D. knee M25.562 Pain in left knee M25.461 Effusion, right knee M25.462 Effusion, left knee M17.0 Bilateral primary osteoarthritis of knee Office Visit 05/24/2015 [place] Tatyana Carrion, I47.1 Supraventricular 9:00a Cardiology Of M.D. tachycardia Car Oiler Office Visit 10/29/2014 [place] DARRYL Levy 427.0 PSVT Paroxysmal 9:00a Cardiology Of Supraventricular [facility] Tachycardia 780.4 Dizziness & Giddiness 785.0 Tachycardia Unspec 401.1 Hypertension Benign Office Visit 10/15/2014 9:45a [place] [facility] Tatyana Carrion, 780.4 Dizziness & Of Car Oiler M.D. Giddiness 427.0 PSVT Paroxysmal Supraventricular Tachycardia 427.69 Premature Beats Other Office Visit 09/28/2014 3:30p [place] [facility] Tatyana Carrion, 780.4 Dizziness & Of Car Oiler M.D. Giddiness 785.0 Tachycardia Unspec 785.2 Murmur Cardiac Undiagnosed 786.50 Pain Chest Unspec Office Visit 12/01/2013 9:00a Orthopedic Jocy 715.96 Osteoarthrosis Services Of Kadie Victoria Unspec Genlzd Or C.M.A. Localized Lower Leg 719.06 Effusion Joint Lower Leg Office Visit 11/20/2013 10:30a Orthopedic Jocy 715.96 Osteoarthrosis Services Of Kadie Victoria Unspec Genlzd Or C.M.A. Localized Lower Leg 719.06 Effusion Joint Lower Leg Office Visit 08/28/2013 10:15a Orthopedic Jocy 715.96 Osteoarthrosis Services Of Kadie Victoria Unspec Genlzd Or C.M.A. Localized Lower Leg Office Visit 07/28/2013 9:45a Orthopedic Jocy 715.96 Osteoarthrosis Services Of Kadie Victoria Unspec Genlzd Or C.M.A. Localized Lower Leg Plan of Treatment Future Appointment(s):2018 9:45 am - Jocy Victoria M.D. at [facility]09/22/2018 3:00 pm - Jocy Victoria M.D. at [facility]09/09/2018 - Jocy Victoria M.D.M25.562 Pain in left kneeFollow up:Follow up: 2 weeks after hethbsnJ47.462 Effusion, left kneeM17.12 Unilateral primary osteoarthritis, left knee
--- OUTSIDE RECORDS SUMMARY | 2018-09-22 11:13 | XMS REPORT | Continuity of Care Document ---
:1935 External Reference #:[id number] Author Name María Elena Coello Care Team Providers Name Role Phone Natalya Ordoñez MD Primary Care Physician Unavailable Payers Date Identification Numbers Payment Provider Subscriber Effective: 2007 Policy Number: [id number] Medicare [facility] PayID: [id number] [address] [place] [address] Policy Number: [id number] [facility] PayID: [id number] [address] [place] [address] Advance Directives Description No Information Available Problems [...] Status Lives With Spouse 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 Hand Dominance Right-handed Tobacco Use Start: Unknown Never Smoked Cigarettes Smoking Status Reviewed: 02/08/19 Never Smoked Cigarettes ETOH Use consumes 1-2 [...] Available Vital Signs Date Vital Result Comment 08/26/2018 8:12am Height 65.75 inches 5'5.75" Weight [...] BMI (Body Mass Index) 24.2 kg/m2 Results Description No Information Available Procedures Date Code Description Status 03/07/2018 03016 ECHO Transthorasic Realtime 2D W Doppler & Color Flow Hosp Completed 05/24/2015 31607 EKG Tracing & Interpretation Completed 10/23/2014 94586 Holter Monitoring 24 HR New Completed 10/04/2014 82704 Stress ECHO Interpretation/Report Hospital Completed 10/04/2014 66605 Treadmill Interp/Report Only Completed 10/04/2014 91178 Stress Test Supervsn W/Out I/R Completed 10/01/2014 16732 ECHO Transthoracic, Real-Time 2D With Doppler And Color Completed Flow 09/28/2014 46023 EKG Tracing & Interpretation Completed 12/01/2013 62930 Inject/Drain Joint/Bursa Major W/O US Completed 07/28/2013 30776 Xray Knee 3 Views Completed 07/28/2013 73974 Rad Exam; Knee, Ap&L Completed 07/28/2013 84059 Inject/Drain Joint/Bursa Major W/O US Completed Encounters Type Date Location Provider Dx Diagnosis Office Visit 04/11/2018 [facility] Reed Allred, I10 Essential (primary) 8:30a Services Of [facility] hypertension I48.91 Unspecified atrial fibrillation E78.5 Hyperlipidemia, unspecified Z86.73 Prsnl hx of TIA (TIA), and cereb infrc w/o resid deficits Office Visit 03/08/2018 [facility] Denise Diaz G45.9 Transient 7:00a Clinic cerebral ischemic attack, unspecified I10 Essential (primary) hypertension I48.91 Unspecified atrial fibrillation E78.5 Hyperlipidemia, unspecified Office Visit 03/07/2018 [facility] Denise Diaz, G45.9 Transient 7:00a Clinic cerebral ischemic attack, unspecified I10 Essential (primary) hypertension I48.91 Unspecified atrial fibrillation E78.5 Hyperlipidemia, unspecified Office Visit 03/06/2018 [facility] Hunter G45.9 Transient 10:44a Assoc,johnny Liang N.[facility] cerebral ischemic Hospitalists attack, unspecified I10 Essential (primary) hypertension I48.91 Unspecified atrial fibrillation Office Visit 01/14/2018 8:30a [facility] Jocy Victoria, M25.561 Pain in right Of C.M.A. M.D. knee M25.562 Pain in left knee M25.461 Effusion, right knee M25.462 Effusion, left knee M17.0 Bilateral primary osteoarthritis of knee Office Visit 05/24/2015 [facility] Tatyana Carrion, I47.1 Supraventricular 9:00a Cardiology Of M.D. tachycardia Polish Maker Office Visit 10/29/2014 [facility] DARRYL Levy 427.0 PSVT Paroxysmal 9:00a Cardiology Of Supraventricular Polish Maker Tachycardia 780.4 Dizziness & Giddiness 785.0 Tachycardia Unspec 401.1 Hypertension Benign Office Visit 10/15/2014 9:45a [facility] Tatyana Carrion, 780.4 Dizziness & Of Polish Maker M.D. Giddiness 427.0 PSVT Paroxysmal Supraventricular Tachycardia 427.69 Premature Beats Other Office Visit 09/28/2014 3:30p [facility] Tatyana Carrion, 780.4 Dizziness & Of Polish Maker M.D. Giddiness 785.0 Tachycardia Unspec 785.2 Murmur [...] 715.96 Osteoarthrosis Services Of Kadie Victoria Unspec Josephine Or [facility] Localized Lower Leg Office Visit 07/28/2013 9:45a Orthopedic Jocy 715.96 Osteoarthrosis Services Of Kadie Victoria Unspec Josephine Or ChristelleMLeeroy Localized Lower Leg Plan of Treatment Future Appointment(s):09/09/2018 8:30 am - Jocy Victoria M.D. at [facility]08/26/2018 - Jocy Victoria M.D.M25.562 Pain in left kneeNew Xrays:Knee 3 Views LT, Ordered: 08/26/18Follow up:Follow up: 7-10 days before styfwesS12.462 Effusion, left kneeM17.12 Unilateral primary osteoarthritis, left knee
[2018-09-22] MEDS ORDERED: Dexamethasone IV* 4 MG/ML 1 ML (4 MG) ONE (12:16)
[2018-09-22 12:27] LABS: Activated Partial Thrombo Time 33.1 seconds (26.0-36.3); INR 0.91 (0.77-1.02)
[2018-09-22] MEDS ORDERED: ROPIVACAINE 5 MG/ML 30 ML BTL (0.5%) ONE ×2 (12:48→12:59)
[2018-09-22] MEDS ORDERED: fentaNYL* 50 MCG/ML 2 ML VIAL (100 MCG VIAL) ONE (12:57)
[2018-09-22] MEDS ORDERED: Midazolam* 1 MG/ML 2 ML VIAL (2 MG) ONE (12:58)
[2018-09-22] MEDS ORDERED: Bupivacaine 0.5% SDV PF* 30ML VIAL ONE (12:59)
[2018-09-22] MEDS ORDERED: Lidocaine 2% PF * 5 ML VIAL ONE (12:59)
[2018-09-22] MEDS ORDERED: Phenylephrine INJ* 10 MG/ML 1 ML VIAL (10 MG) ONE (14:04)
[2018-09-22] MEDS ORDERED: Propofol* 10 MG/ML 20 ML BTL ONE (15:04)
[2018-09-22] MEDS ORDERED: diPHENhydraMINE PO* 25 MG PO PRN (16:15)
[2018-09-22] MEDS ORDERED: Bisacodyl SUPP* 10 MG SUPP PR PRN (16:15)
[2018-09-22] MEDS ORDERED: Polyethylene Glycol 3350* 17 GM PACKET PO PRN (16:15)
[2018-09-22] MEDS ORDERED: Morphine VIAL* 4 MG/ML VIAL (1 ml vial) IV PRN (16:15)
[2018-09-22] MEDS ORDERED: Magnesium Hydroxide LIQ* 30 ML UDC PO PRN (16:15)
[2018-09-22] MEDS ORDERED: Cyclobenzaprine TAB* 10 MG PO PRN (16:15)
[2018-09-22] MEDS ORDERED: diPHENhydraMINE IV* 50 MG/ML 1 ml VIAL (BENADRYL) IV PRN (16:15)
[2018-09-22] MEDS ORDERED: Ondansetron INJ* 2 MG/ML VIAL IV PRN ×2 (16:15→16:42)
[2018-09-22] MEDS ORDERED: oxyCODONE/Acetamin 5/325 MG* TAB PO PRN (16:15)
[2018-09-22] MEDS ORDERED: Bupivacaine 0.5%* 50 ML VIAL ONE (16:20)
[2018-09-22] MEDS ORDERED: Naloxone* 0.4 MG/ML 1 ML VIAL IV PRN (16:42)
[2018-09-22] MEDS ORDERED: fentaNYL* 50 MCG/ML 2 ML VIAL (100 MCG VIAL) IV PRN (16:42)
[2018-09-22] MEDS ORDERED: HYDROmorphone INJ1* 1 MG/ML SYRINGE IV PRN (16:42)
[2018-09-22] MEDS ORDERED: Clindamycin 600 MG/D5W BAG(*) 600 MG/50 ML BAG IV SCH (17:00)
[2018-09-22] MEDS ORDERED: Acetaminophen TAB* 325 MG PO SCH (17:00)
--- NOTE | 2018-09-22 17:38 | PN ---
Progress Note - Progress Note Date of Service: 09/22/18 Note: Pt seen POD 0 in PACU. Pain is well controlled. Sensation is returning in her left leg though still somewhat less than baseline. Denies CP, SOB, dizziness or nausea. Dressing CDI, cryo in use, DF/PF intact, Dp2+, sensation intact to light touch throughout left foot. On home dose of eliquis for dvt prophylaxis
[2018-09-22] MEDS: Lactated Ringers 1000 ML Bag* 1,000 ML IV SCH (18:44)
[2018-09-22] MEDS: Acetaminophen TAB* 325 MG PO SCH (19:34)
[2018-09-22] MEDS: Docusate CAP* 100 MG PO SCH (19:36)
[2018-09-22] MEDS: Magnesium Hydroxide LIQ* 30 ML UDC PO SCH (19:41)
[2018-09-22] MEDS: Clindamycin 600 MG/D5W BAG(*) 600 MG/50 ML BAG IV SCH (22:00)
[2018-09-22] MEDS: traMADol TAB* 50 MG PO PRN (22:02)
--- NOTE | 2018-09-23 00:23 | CONS ---
[facility] MEDICINE CONSULTATION REPORT: DATE OF CONSULT: 09/22/18 PROVIDER: Bambi Youssef NP ATTENDING PHYSICIAN: Dr. Victoria. CONSULTING PHYSICIAN: Dr. Freda Steel (dictated by Bambi Youssef NP). REASON FOR CONSULT: Comanagement of chronic medical conditions. HISTORY OF PRESENT ILLNESS: Ms. Howard is an 82-year-old female with past medical history significant for hypertension, TIA in February of 2018, and chronic atrial fibrillation, on Eliquis, who presented to the hospital for a planned elective left total knee arthroplasty with Dr. Victoria. Please see dictated H and P from DARRYL Estrada, for complete details. In brief, the patient the patient had ongoing pain and failed conservative measures, therefore , opted for a left total knee arthroplasty with Dr. Victoria. In the postoperative period, the patient has no complaints. Due to her history of hypertension and atrial fibrillation and recent TIA, we were asked to see and consult to help manage her chronic medical conditions. PAST MEDICAL HISTORY: 1. Hypertension. 2. TIA in February 2018. 3. Atrial fibrillation, on chronic Eliquis. PAST SURGICAL HISTORY: 1. Vein ligation. 2. D and C. 3. Cataract surgery. HOME MEDICATIONS: Include: 1. Multivitamin 1 tablet p.o. daily. 2. Eliquis 5 mg p.o. b.i.d. 3. Metoprolol 50 mg p.o. daily. 4. Protandim 2 tablets p.o. daily. ALLERGIES: PENICILLIN AND PRAVASTATIN. FAMILY HISTORY: Significant for a stroke. No reported history of diabetes. SOCIAL HISTORY: The patient is an 82-year-old. She lives with her . She denies any alcohol or illicit drug use. She does report occasional alcohol use. REVIEW OF SYSTEMS: The patient denies any chest pain, edema, cough, hemoptysis , or shortness of breath. No nausea, vomiting, diarrhea, or abdominal pain, gross hematuria or dysuria. She denies any focal weakness or sensory loss. Denies any visual complaints, aphasia, arthralgias, myalgias, rashes, or lesions , or open sores. Denies any psychosis or anxiety. PHYSICAL EXAM: General: At this time, Ms. Howard is an 82-year-old female, she appears well nourished, well developed, resting in her patient room, she is in no acute distress. HEENT: Head is atraumatic, normocephalic. Eyes: EOMS are intact. Sclerae are anicteric and not pale. Oral mucosa appeared to be moist. Neck is supple. Lungs are clear to auscultation bilaterally. No wheezes , rales, or rhonchi. Cardiac: S1 and S2. Regular rate and rhythm. No murmurs , rubs, or gallops. Abdomen is soft and nontender. Bowel sounds are present x4. Extremities: She is able to move all 4 extremities. She does have a dressing that is dry and intact to her left knee. Pedal pulse are +2 bilaterally. Skin: She has a dry and intact dressing to the left knee. Neurologic: She is awake, alert, and oriented x3. Speech is clear. Thought process is intact. There are no gross focal deficits noted. DIAGNOSTIC STUDIES/LAB DATA: Blood work from 09/08/18, WBCs were 5.4, RBCs 4.27 , hemoglobin was 13.2, hematocrit was 40, platelet count was 234. INR on was 0.91. Chemistry: Sodium was 140, potassium 4.3, chloride was 104, carbon dioxide was 31, anion gap was 5, BUN was 14, creatinine 0.78, glucose was 69, calcium was 9.4. ASTs were 18, ALTs were 15, and alkaline phosphate is 51. Urine had trace ketones, trace leukocyte esterase, rbc's were 1+, bacteria was absent. IMPRESSION AND PLAN: Ms. Howard is an 82-year-old female with past medical history significant for hypertension; history of transient ischemic attack; chronic atrial fibrillation, on Eliquis, who presented to [facility] for an elective left total knee arthroplasty with Dr. Victoria in the immediate postoperative period. The patient has no complaints. Hospital medicine was asked to consult due to the chronic medical conditions. Our recommendations are as follows: 1. Status post left total knee arthroplasty with Dr. Victoria. Management per Orthopedics, PT/OT per Orthopedics. Follow regimen per Orthopedics. DVT prophylaxis per Orthopedics. 2. Hypertension. I will continue on her metoprolol p.o. daily for holding parameters for heart rate less than 50, systolic blood pressure less than 110. 3. Atrial fibrillation. The patient should resume Eliquis as soon as possible and continue on her metoprolol as previously prescribed. 4. History of transient ischemic attack. The patient should continue on metoprolol and Eliquis. She should resume her Eliquis as soon as possible. DVT prophylaxis as per Orthopedics. 5. Code status. She is a full code. TIME SPENT: Time spent on this consultation was 45 minutes; greater than half that time was spent at the bedside reviewing events leading thus far to her hospitalization, performing my physical exam, and reviewing my plan of care. I have discussed this with my attending Dr. Freda Steel and she is in agreement with my plan. BAMBI YOUSSEF, YAMEL [id number]/[facility] #: [id number] FADY
[2018-09-23] MEDS: oxyCODONE TAB* 5 MG TAB PO PRN ×2 (01:52→22:33)
[2018-09-23] MEDS: Acetaminophen TAB* 325 MG PO SCH ×3 (03:41→22:32)
[2018-09-23] MEDS: oxyCODONE/Acetamin 5/325 MG* TAB PO PRN (03:42)
[2018-09-23] MEDS: Lactated Ringers 1000 ML Bag* 1,000 ML IV SCH (04:45)
[2018-09-23] MEDS: traMADol TAB* 50 MG PO PRN ×2 (06:02→14:43)
[2018-09-23] MEDS: Clindamycin 600 MG/D5W BAG(*) 600 MG/50 ML BAG IV SCH ×3 (06:03→23:17)
[2018-09-23 07:33] LABS: Hematocrit 31 % (35-47); Hemoglobin 10.5 g/dl (12.0-16.0); Mean Platelet Volume 8.7 fL (7.4-10.4); Platelet Count 185 10^3/ul (150-450)
[2018-09-23 07:49] LABS: BUN/Creatinine Ratio 23.2 (8-20); Calcium 8.8 mg/dL (8.6-10.3); EGFR African American 98.1 (>60); EGFR Non-African American 81.1 (>60); Potassium 4.4 mmol/L (3.5-5.0)
--- NOTE | 2018-09-23 08:37 | OP ---
OPERATIVE NOTE: DATE OF OPERATION: 09/22/18 DATE OF : 31 ATTENDING SURGEON: Jocy Victoria MD [employer] FABRICATION SUPERVISOR: DARRYL Durán Ms. Verdin did help throughout the procedure with preparation of the leg, wound retraction, manipulat ion of the knee, and wound closure. ANESTHESIOLOGIST: Dr. Cardozo. ANESTHESIA: Spinal. PRE-OP DIAGNOSIS: Severe end-stage degenerative osteoarthritis of the left knee joint. POST-OP DIAGNOSIS: Severe end-stage degenerative osteoarthritis of the left knee joint. OPERATIVE PROCEDURE: Left total knee arthroplasty. TOURNIQUET TIME: 46 minutes. COMPLICATIONS: None. SPECIMENS: Bone and cartilage from the left knee joint sent to Pathology. ESTIMATED BLOOD LOSS: 150 cc. HARDWARE USED: This is cemented [employer] total knee arthroplasty hardware. For the cement, 2 packages of Simplex bone cement. For the femur, a left size 6, narrow, Legion posterior stabilized femoral component. For the tibia, a size 5, left Ayah II tibial baseplate. For the insert, an 11 -mm, size 5/6, posterior stabilized articular insert. For the patella, a 32 mm, 3-peg all-poly dugan la with 7.5 thickness. BRIEF HISTORY/INDICATIONS: Ms. Howard is an 82-year-old female with years of increasingly severe le ft knee pain. She failed conservative treatment with antiinflammatories, pain medication, intraartic ular injections, and physical therapy. Due to continued pain and decreased quality of life, she elec andre to undergo left total knee arthroplasty. Informed consent was obtained from the patient. She un derstood the risks of surgery included, but were not limited to bleeding, infection, damage to nearby structures, continued pain, need for further surgery, intraoperative fracture, nerve palsy, hardware failure or loosening, knee stiffness, loss of motion, stroke, heart attack, blood clot, and . She wished to proceed. INTRAOPERATIVE FINDINGS: Intraoperatively, the patient was noted to have severe end-stage arthritis with complete loss of cartilage in all 3 compartments. She had 12 degrees valgus deformity at the st art of the case. She did have significant osteopenia noted. DESCRIPTION OF PROCEDURE: Ms. Howard is an 82-year-old female who was identified in the preanesthes ia unit. Her left lower extremity was marked as the correct operative side. Informed consent was si gned and placed in the chart. The patient was taken to the operating room and placed under anesthesi a. A Almaguer catheter was placed. Tourniquet was placed on the left thigh. Left lower extremity was prepped and draped in the usual sterile fashion. Preop time-out was made to correctly identify the p atient, side and site. Appropriate perioperative antibiotics were given within 1 hour of incision. Tourniquet was inflated until the tourniquet time for this procedure was 46 minutes. Midline incisio n was made with a #10 blade. A new 10-blade was used to make a standard medial parapatellar arthroto my and the patella was subluxed laterally. The knee was flexed up. The anterior horn of the lateral meniscus and ACL were sharply released. A drill was used to enter the distal femur. Intramedullary distal femoral cutting guide was pinned on the distal femur. Oscillating saw was used to make the distal femoral cut. External rotation guide was pinned on the distal femur. The distal femur was sized to a size 6. Size 6 multi-cutting jig wa s pinned on the distal femur. Oscillating saw was used to make the appropriate 4 chamfer cuts. Next , the tibia was subluxed anteriorly. Extramedullary tibial cutting guide was pinned on the proximal tibia. Oscillating saw was used to make the proximal tibial cut perpendicular to the mechanical axis of the tibia. The bone was carefully removed. The knee was brought out into full extension. Space r block had good fit with the knee in full extension. Medial and lateral ligaments were well balance d. Flexion and extension gaps were well balanced. The knee was flexed up. Lamina account installation specialist was placed both medially and laterally. Any remaining menisc us was carefully removed using electrocautery. Tibial tray and drop alejandra confirmed satisfactory tibia l cut. A size 6 left narrow femoral trial was impacted on to the distal femur and had excellent fit. The box for the posterior stabilized implant was prepared using a reamer and box-cut osteotome. A size 5 tibial tray trial with an 11-mm insert trial was placed. The knee was taken through a full ra nge of motion. The knee had full extension to 130 degrees of flexion. There was satisfactory patell ofemoral tracking. Patella was everted. A 7 mm of patellar bone and cartilage was carefully removed using an oscillating saw. The patella was sized to a size 32. Three peg holes were drilled through the size 32 guide. A 32 trial patella was placed and the knee was taken through a range of motion. There was satisfactory patellofemoral tracking. All trials were carefully removed. The tibia was subluxed anteriorly and sized to a size 5. Proxima l tibia was prepared using a size 5 keel punch. All bony cut surfaces were copiously irrigated with sterile saline and dried. Final implants were cemented into place starting with the tibia followed b y the femur and last the patella. An 11-mm insert trial was placed and the knee was brought out into full extension. Tourniquet was turned down at 46 minutes. Electrocautery was used to obtain meticu lous hemostasis. The knee was copiously irrigated with sterile saline. Once the cement had fully cu red, the insert trial was removed. Any excess cement was carefully removed from around the capsule a nd hardware. Final insert chosen was an 11-mm posterior-stabilized articular insert size 5/6. This was locked into position on the tibial tray. Stability of the insert was checked and rechecked and n oted to be stable. The extensor mechanism was closed using interrupted #1 Vicryl. The rest of the incision was closed i n a layered fashion using 0 and 2-0 Vicryl. Skin was closed using running 3-0 nylon suture. Sterile Xeroform, 4x4's, and Webril were used to cover the incision. Que wrap and cold pack were placed ove r this. The patient's anesthesia was reversed without difficulty. She was taken to the PACU in stab le condition. Intended weightbearing will be weightbearing as tolerated. [id number]/[facility] #: [id number]
[2018-09-23] MEDS: Docusate CAP* 100 MG PO SCH ×2 (09:00→22:34)
[2018-09-23] MEDS: Apixaban* 5 MG TAB PO SCH ×2 (09:00→22:35)
[2018-09-23] MEDS: Magnesium Hydroxide LIQ* 30 ML UDC PO SCH ×2 (09:00→22:34)
[2018-09-23] MEDS ORDERED: Metoprolol Succinate XL TAB* 50 MG PO SCH ×2 (09:00→13:50)
[2018-09-23] MEDS: [UNRECOGNIZED DRUG - OTHER] PO SCH (09:02)
[2018-09-23] MEDS: [UNRECOGNIZED DRUG - OTHER] PO SCH (09:02)
--- NOTE | 2018-09-23 14:27 | PN ---
Progress Note - Progress Note Date of Service: 09/23/18 SOAP: Subjective: []Patient seen OOB in chair earlier this am. Has been feeling well in terms of pain. Did well in PT this afternoon but had a drop in her BP. I feel that she should wait until tomorrow for consideration of discharge, patient in agreement. No CP, SOB or palpitations. Objective: [] Vital Signs Temp 97.7 F 09/23/18 07:51 Pulse 86 09/23/18 13:52 Resp 18 09/23/18 11:49 BP 84/46 09/23/18 13:52 Pulse Ox 99 09/23/18 08:00 Intake & Output 09/22/18 09/23/18 09/23/18 18:59 06:59 18:59 Intake Total 1200 1820 300 Output Total 400 900 Balance 800 920 300 Weight 147 lb Intake: IV Fluids 1200 1040 ABX - CLINDAMYCIN 50 LR 1200 990 Oral 780 300 Output: Almaguer 400 900 Other: Estimated Blood Loss 150 Comment Laboratory Results - last 24 hr 09/23/18 09/23/18 07:15 07:15 Hgb 10.5 L Hct 31 L Plt Count 185 MPV 8.7 Sodium 134 L Potassium 4.4 Chloride 101 Carbon Dioxide 29 Anion Gap 4 BUN 16 Creatinine 0.69 Est GFR ( Amer) 98.1 Est GFR (Non-Af Amer) 81.1 BUN/Creatinine Ratio 23.2 H Glucose 125 H Calcium 8.8 Left knee dressings are dry and intact calf NT and soft +DF left ankle sensation and circulation intact distally Assessment: []s/p right total knee arthroplasty POD #1 Plan: []PT/OT Monitor BP Eliquis 5 mg BID as per pre op Dressing change 09/24 Possible discharge tomorrow if doing well.
--- NOTE | 2018-09-23 22:44 | PN ---
Subjective Date of Service: 09/23/18 Interval History: reports mild nausea today. c/o left knee pain. denies chest pain or shortness of breath. denies abd pain n/v/d. denies calf tenderness Family History: Unchanged from Admission Social History: Unchanged from Admission Past Medical History: Unchanged from Admission Objective Active Medications: Acetaminophen (Tylenol Tab*) 975 mg PO 0330,1130,1930 [facility] Last Admin: 09/23/18 22:32 Dose: 975 mg Apixaban (Eliquis*) 5 mg PO BID [facility] Last Admin: 09/23/18 22:35 Dose: 5 mg Bisacodyl (Dulcolax Supp*) 10 mg [place] DAILY PRN PRN Reason: constipation Cyclobenzaprine HCl (Flexeril Tab*) 10 mg PO TID PRN PRN Reason: SPASMS Last Admin: 09/23/18 18:06 Dose: 10 mg Diphenhydramine HCl (Benadryl Iv*) 25 mg IV Q6H PRN PRN Reason: itching Diphenhydramine HCl (Benadryl Po*) 25 mg PO Q6H PRN PRN Reason: INSOMNIA Docusate Sodium (Colace Cap*) 100 mg PO BID [facility] Last Admin: 09/23/18 22:34 Dose: 100 mg Lactated Ringer's (Lactated Ringers 1000 Ml Bag*) 1,000 mls @ 100 mls/hr IV PER RATE [facility] Last Admin: 09/23/18 04:45 Dose: 100 mls/hr Lactulose (Lactulose*) 30 ml PO Q6H PRN PRN Reason: constipation Magnesium Hydroxide (Milk Of Magnesia Liq*) 30 ml PO BID [facility] Last Admin: 09/23/18 22:34 Dose: 30 ml Magnesium Hydroxide (Milk Of Magnesia Liq*) 30 ml PO Q6H PRN PRN Reason: constipation Metoprolol Succinate (Toprol Xl Tab*) 50 mg PO QAM [facility] Morphine Sulfate (Morphine Vial*) 2 mg IV Q2H PRN PRN Reason: PAIN Nft: Protandin Nrf1 (2 Tab) 2 tab PO QAM [facility] Last Admin: 09/23/18 09:02 Dose: Not Given Nft: Protandin Nrf2 (1 Tab) 1 tab PO QAM [facility] Last Admin: 09/23/18 09:02 Dose: Not Given Ondansetron HCl (Zofran Inj*) 4 mg IV Q6H PRN PRN Reason: nausea Ondansetron HCl (Zofran Inj*) 4 mg IV ONCE PRN PRN Reason: NAUSEA/VOMITING Oxycodone HCl (Roxycodone Tab*) 10 mg PO Q4H PRN PRN Reason: breakthru pain Last Admin: 09/23/18 22:33 Dose: 10 mg Oxycodone/Acetaminophen (Percocet 5/325 Tab*) 1 tab PO Q3H PRN PRN Reason: PAIN - MODERATE Last Admin: 09/23/18 11:49 Dose: 1 tab Oxycodone/Acetaminophen (Percocet 5/325 Tab*) 2 tab PO Q3H PRN PRN Reason: PAIN - MODERATE Last Admin: 09/23/18 03:42 Dose: 2 tab Polyethylene Glycol/Electrolytes (Miralax*) 17 gm PO DAILY PRN PRN Reason: Constipation Tramadol HCl (Ultram*) 50 mg PO Q6H PRN PRN Reason: PAIN Last Admin: 09/23/18 14:43 Dose: 50 mg Vital Signs - 8 hr 09/23/18 09/23/18 09/23/18 14:43 16:00 16:04 Temperature 97.6 F Pulse Rate 56 Respiratory 18 18 Rate Blood Pressure 121/59 (mmHg) O2 Sat by Pulse 99 99 Oximetry 09/23/18 09/23/18 09/23/18 18:02 18:06 20:13 Temperature 97.5 F Pulse Rate 63 Respiratory 18 18 18 Rate Blood Pressure 122/52 (mmHg) O2 Sat by Pulse 97 Oximetry 09/23/18 22:33 Temperature Pulse Rate Respiratory 16 Rate Blood Pressure (mmHg) O2 Sat by Pulse Oximetry Oxygen Devices in Use Now: None Appearance: appears comfortable resting in bed. no acute distress Eyes: No Scleral Icterus Ears/Nose/Mouth/Throat: Clear Oropharnyx, Mucous Membranes Moist Neck: NL Appearance and Movements; NL JVP Respiratory: Symmetrical Chest Expansion and Respiratory Effort, Clear to Auscultation Cardiovascular: NL Sounds; No Murmurs; No JVD, No Edema Abdominal: NL Sounds; No Tenderness; No Distention Extremities: No Clubbing, Cyanosis, - - pedal pulses +2 , dressing dry and intact to left knee Skin: No Rash or Ulcers Neurological: Alert and Oriented x 3 Nutrition: Taking PO's Result Diagrams: 09/24/18 05:46 09/23/18 07:15 Assess/Plan/Problems-Billing Assessment: Ms. Howard is a 82 y.o female with hx of htn, afib on eliquis , hx of TIAand arthritis who presented for an elective left total knee replacement. - Patient Problems (1) Status post total left knee replacement Current Visit: Yes Status: Acute Code(s): Z96.652 - PRESENCE OF LEFT ARTIFICIAL KNEE JOINT SNOMED Code(s): 1551822214337 Comment: management per orthopedics pt/ot per ortho pain management per ortho (2) A-fib Current Visit: Yes Status: Acute Code(s): I48.91 - UNSPECIFIED ATRIAL FIBRILLATION SNOMED Code(s): 89970814 Comment: Continue metoprolol and resume eliquis when able (3) HTN (hypertension) Current Visit: Yes Status: Acute Code(s): I10 - ESSENTIAL (PRIMARY) HYPERTENSION SNOMED Code(s): 82986279 Comment: continue metoprolol with hold for SBP less than 110 (4) DVT prophylaxis Current Visit: Yes Status: Acute Code(s): ODW5317 - SNOMED Code(s): 748735608 Comment: eliquis (5) Full code status Current Visit: Yes Status: Acute Code(s): Z78.9 - OTHER SPECIFIED HEALTH STATUS SNOMED Code(s): 798336048
[2018-09-24] MEDS: Acetaminophen TAB* 325 MG PO SCH ×2 (03:30→12:02)
[2018-09-24] MEDS: oxyCODONE/Acetamin 5/325 MG* TAB PO PRN (05:40)
[2018-09-24 06:35] LABS: Hematocrit 29 % (35-47); Mean Platelet Volume 9.2 fL (7.4-10.4); Platelet Count 173 10^3/ul (150-450)
[2018-09-24] MEDS: oxyCODONE TAB* 5 MG TAB PO PRN ×2 (07:42→12:02)
[2018-09-24] MEDS: Apixaban* 5 MG TAB PO SCH (08:41)
[2018-09-24] MEDS: Magnesium Hydroxide LIQ* 30 ML UDC PO SCH (08:41)
[2018-09-24] MEDS: Docusate CAP* 100 MG PO SCH (08:41)
[2018-09-24] MEDS: [UNRECOGNIZED DRUG - OTHER] PO SCH (08:42)
[2018-09-24] MEDS: [UNRECOGNIZED DRUG - OTHER] PO SCH (08:42)
--- NOTE | 2018-09-24 09:25 | PN ---
Progress Note - Progress Note Date of Service: 09/24/18 SOAP: Subjective: [Pt doing well. Feels better than yesterday but still a bit of "confusion" at times likely attributable to narcotics. Pain managed well with Percocet. Denies dizziness, SOB, CP. Feels ready to go home,] Objective: [At PT upon my visit - doing well. A and O x 3, NAD R knee dressing changed. Wound benign. No drainage or erythema. Calf soft, NT. Able to ambulate with walker. NV function intact. BP has been stable. Vital Signs: Temp Pulse Resp BP Pulse Ox 98.1 F 72 15 120/68 91 09/24/18 07:43 09/24/18 07:43 09/24/18 07:43 09/24/18 07:43 09/24/18 07:43 Laboratory Results - last 24 hr 09/24/18 05:46 Hgb 10.0 L Hct 29 L Plt Count 173 MPV 9.2 ] Assessment: [s/p R TKA POD #2] Plan: [PT/OT Pain management with Percocet Eliquis 5 mg bid D/C home with services F/U with Dr. Victoria 2 weeks]
[2018-09-24 14:01] VITALS: BP 125/56
--- NOTE | 2018-09-26 10:28 | DS ---
AMENDED REPORT NOW INCLUDES DESIGNATED COSIGNER DISCHARGE SUMMARY: DATE OF ADMISSION: 09/22/18 DATE OF DISCHARGE: 09/24/18 PROVIDER: Jocy Victoria MD * (DICTATED BY DARRYL BECERRIL) ADMITTING PHYSICIAN: Dr. Victoria. ADMITTING DIAGNOSES: 1. Left knee osteoarthritis. 2. History of transient ischemic attack. 3. History of Lyme disease. 4. Hypertension. 5. Atrial fibrillation. DISCHARGE DIAGNOSES: 1. Status post left total knee arthroplasty. 2. History of transient ischemic attack. 3. Lyme disease. 4. Hypertension. 4. Atrial fibrillation. PROCEDURE: Left total knee arthroplasty. CONSULTANTS: Physical Therapy, Occupational Therapy, and Medicine. BRIEF HISTORY: Ms. Howadr is an 82-year-old female with severe degenerative osteoarthritis of her left knee. She failed conservative treatment measures and elected to undergo a left total knee arthroplasty on 09/22/[address] Victoria. HOSPITAL COURSE: Ms. Howard was admitted to [facility] on . She underwent an uncomplicated left total knee arthroplasty. Postoperatively, she recovered on the short-stay surgical unit. Her [place] catheter was removed on postoperative day #1 and she was able to urinate on her own. Postoperative day #2, she was able to have a bowel movement. She advanced to a regular diet without difficulty. Her pain was well controlled with Percocet. DVT prophylaxis was Eliquis 5 mg twice daily, which is a regular medication for the patient. Her vital signs and labs remained stable. She was able to bear weight as tolerated on the left lower extremity. She advanced appropriately with physical therapy and occupational therapy. By postoperative day #2, she was orthopedically and medically stable to be discharged to home with services. PHYSICAL EXAM: On examination, the patient is noted to be calm and cooperative , in no acute distress. She is alert and oriented x3. Vital Signs: On day of discharge, temperature 98.1 degrees Fahrenheit, pulse rate 72, respiratory rate 15, O2 sat 91% on room air, blood pressure 120/68. On extremities examination of the left lower extremity, surgical wound is benign. No erythema or drainage. A dressing overlying the left knee is clean, dry, and intact. Her calf is soft and nontender. Distal gross motor and neurovascular function intact. LABORATORY DATA: On day of discharge, hemoglobin 10.0, hematocrit 29. RADIOGRAPHS: Postoperative radiographs of the left knee demonstrate a left total knee arthroplasty with satisfactory prosthesis placement and no acute abnormalities. DISCHARGE MEDICATIONS: 1. Metoprolol 50 mg daily. 2. Eliquis 5 mg twice daily. 3. Protandim 2 daily. 4. Multivitamin daily. 5. Percocet 5/325 1 to 2 tabs p.o. q.4 to 6 hours p.r.n. pain. 6. Colace 100 mg p.o. t.i.d. p.r.n. constipation. DISCHARGE INSTRUCTIONS: Ms. Howard is an 82-year-old female postoperative day #2, status post left total knee arthroplasty which was uncomplicated. She is orthopedically and medically stable to be discharged home with services. She has stable vital signs and labs. She will continue to use her Eliquis 5 mg twice a day, she will use Percocet for a pain management and Colace as needed for constipation. She will remain weightbearing as tolerated on the left lower extremity and have home physical therapy twice daily. She will follow up in the office with Dr. Victoria in 10 to 14 days for incision check and suture removal. She was instructed to call Dr. Victoria or go immediately to the ER should she develop any new fever, chills, incision, pain, redness, or drainage. She was instructed to go immediately to the ER should she develop chest pain or shortness of breath. DARRYL BECERRIL [id number]/[facility] #: [id number] [facility] CENTERAmy
== END 2018-09-24 14:30 | disposition home health service (06) | DRG 470 ==
LOC: AA 09-22 11:10 → SSU 09-22 18:17
PROVIDERS: ADMIT Orthopaedic Surgery Adult Reconstructive Orthopaedic Surgery; ATTEND Orthopaedic Surgery Adult Reconstructive Orthopaedic Surgery
PROC: 0SRD0J9 Replacement of Left Knee Joint with Synthetic Substitute, Cemented, Open Approach (ICD-10-PCS; principal; 2018-09-22 14:15)
DX: M17.12 Unilateral primary osteoarthritis, left knee (principal); I10 Essential (primary) hypertension; M25.462 Effusion, left knee; M65.342 Trigger finger, left ring finger; M81.0 Age-related osteoporosis without current pathological fracture; K44.9 Diaphragmatic hernia without obstruction or gangrene; G45.4 Transient global amnesia; I48.2 Chronic atrial fibrillation; M21.062 Valgus deformity, not elsewhere classified, left knee; M85.88 Other specified disorders of bone density and structure, other site; G43.109 Migraine with aura, not intractable, without status migrainosus; H91.90 Unspecified hearing loss, unspecified ear; I48.0 Paroxysmal atrial fibrillation; K64.9 Unspecified hemorrhoids; R41.0 Disorientation, unspecified; R11.0 Nausea; Z82.49 Family history of ischemic heart disease and other diseases of the circulatory system; Z85.820 Personal history of malignant melanoma of skin; Z88.0 Allergy status to penicillin; Z88.8 Allergy status to other drugs, medicaments and biological substances; Z82.3 Family history of stroke; Z86.73 Personal history of transient ischemic attack (TIA), and cerebral infarction without residual deficits; Z88.1 Allergy status to other antibiotic agents; Z80.8 Family history of malignant neoplasm of other organs or systems; Z72.89 Other problems related to lifestyle; Z98.42 Cataract extraction status, left eye; Z98.41 Cataract extraction status, right eye; Z79.01 Long term (current) use of anticoagulants
CPT/HCPCS: 36415; 80048; 85014; 85018; 85049; 85610; 85730; 88305; 88311; A9270-GY; C1776; G8978-GP-CJ; G8979-GP-CI; G8979-GP-CJ; G8987-GO-CJ; G8988-GO-CJ; G8989-GO-CJ; J1100; J2250; J2405; J2704; J2795; J3010

== ENCOUNTER 2023-03-10 09:09 | Observation (INO) ==
[2023-03-10] MEDS ORDERED: Iodixanol (CONTRAST) 320 MG/ML 100 ML SDV IV ONE (09:21)
[2023-03-10 09:45] LABS: ABS Eosinophils 0.1 10^3/uL (0.0-0.5); ABS Lymphocytes 1.6 10^3/uL (1.0-4.8); ABS Monocytes 0.6 10^3/uL (0.0-0.9); ABS Neutrophils 2.6 10^3/uL (1.5-7.6); ABS Nucleated RBC 0.01 10^3/ul; Eosinophil % 2.9 %; Hematocrit 42.2 % (35-45); Hemoglobin 14.3 g/dL (11.5-14.3); Lymphocyte % 31.3 %; Mean Corpuscular Hemoglobin 31.5 pg (27-33); Mean Corpuscular Hgb Conc 33.9 g/dL (31-36); Mean Platelet Volume 9.5 fL (7.5-11.2); Nucleated Red Blood Cells % 0.1 /100 WBC (0.0-0.4); Platelet Count 233 10^3/uL (150-450); Red Blood Count 4.54 10^6/uL (3.63-4.92); Red Cell Distribution Width 13.5 % (12-17)
[2023-03-10 09:57] LABS: ALT 12 U/L (7-52); AST 16 U/L (13-39); Albumin 4.2 g/dL (3.2-5.2); Albumin/Globulin Ratio 1.5 (1-3); Alkaline Phosphatase 59 U/L (35-149); Anion Gap 7 mmol/L (2-16); Blood Urea Nitrogen 14 mg/dL (6-24); CO2 Carbon Dioxide 29 mmol/L (22-32); Calcium 9.7 mg/dL (8.6-10.3); Chloride 104 mmol/L (101-111); Cholesterol 202 mg/dL; Creatinine, Serum 0.82 mg/dL (0.51-0.95); Globulin 2.8 g/dL (2-4); Glucose 88 mg/dL (70-100); HDL Cholesterol 101.2 mg/dL; LDL Cholesterol 86 mg/dL; Potassium 3.7 mmol/L (3.5-5.0); Sodium 140 mmol/L (135-145); Triglycerides 73 mg/dL; eGFR CKD-EPI 68.3 (>60)
[2023-03-10 09:59] LABS: INR 1.54 (0.83-1.13)
[2023-03-10 13:16] LABS: Urine Appearance Clear; Urine Bilirubin Negative (Negative); Urine Blood Negative (Negative); Urine Color Straw; Urine Glucose Negative (Negative); Urine Ketones Negative (Negative); Urine Nitrite Negative (Negative); Urine Protein Negative (Negative); Urine Specific Gravity 1.025 (1.002-1.030); Urine Urobilinogen Negative (Negative)
[2023-03-10] MEDS ORDERED: Polyethylene Glycol 3350 17 GM PACKET PO SCH (17:00)
[2023-03-10] MEDS: Polyethylene Glycol 3350 17 GM PACKET PO SCH (22:15)
[2023-03-11 06:06] LABS: ABS Eosinophils 0.1 10^3/uL (0.0-0.5); ABS Lymphocytes 1.7 10^3/uL (1.0-4.8); ABS Monocytes 0.6 10^3/uL (0.0-0.9); ABS Neutrophils 2.5 10^3/uL (1.5-7.6); Eosinophil % 2.7 %; Hematocrit 37.7 % (35-45); Lymphocyte % 33.7 %; Mean Corpuscular Hemoglobin 31.5 pg (27-33); Mean Corpuscular Hgb Conc 34.3 g/dL (31-36); Mean Corpuscular Volume 91.7 fL (80-97); Mean Platelet Volume 9.2 fL (7.5-11.2); Nucleated Red Blood Cells % 0.1 /100 WBC (0.0-0.4); Platelet Count 211 10^3/uL (150-450); Red Blood Count 4.11 10^6/uL (3.63-4.92); Red Cell Distribution Width 13.2 % (12-17)
[2023-03-11 06:16] LABS: Calcium 9.5 mg/dL (8.6-10.3); Creatinine, Serum 0.74 mg/dL (0.51-0.95); Magnesium 1.9 mg/dL (1.9-2.7); Potassium 3.9 mmol/L (3.5-5.0); eGFR CKD-EPI 77.3 (>60)
[2023-03-11] MEDS: Polyethylene Glycol 3350 17 GM PACKET PO SCH (09:30)
[2023-03-11 10:59] VITALS: BP 116/69
[2023-03-12] MEDS ORDERED: Multivitamins/Minerals TAB PO SCH (09:00)
== END 2023-03-11 13:39 | disposition home or self-care (01) ==
LOC: EDHOLD 09:09 → ED 09:09 → MEDTELE 20:19
PROVIDERS: ADMIT Internal Medicine; ATTEND Internal Medicine